=== PATIENT | female | born 1940 | race Two or more races ===

== ENCOUNTER 2021-08-24 09:05 | Emergency (ER) | payer MEDICARE, MEDICAID, OTHER ==
[~2021-08-24] VITALS: Ht 167.6 cm; Wt 65.8 kg
[2021-08-24 09:54] LABS: Basophils # (auto) 0.1 10 ^3/uL (0-0.2); Basophils % (auto) 0.7 % (0.0-2.0); Eosinophils # (auto) 0.2 10 ^3/uL (0-0.8); Eosinophils % (auto) 1.8 % (0.0-7.0); Hemoglobin 9.5 g/dL (12.2-16.2); INR 0.99 (0.9-1.15); Lymphocytes # (auto) 1.1 10 ^3/uL (0.4-5.4); Lymphocytes % (auto) 10.9 % (10.0-50.0); Mean Corpuscular Hemoglobin 31.4 pg (28.0-32.0); Mean Corpuscular Volume 95.2 fL (80.0-100.0); Monocytes # (auto) 0.5 10 ^3/uL (0-1.3); Monocytes % (auto) 4.8 % (0.0-12.0); Neutrophils # (auto) 8.2 10 ^3/uL (1.6-8.6); Neutrophils % (auto) 81.8 % (37.0-80.0); Nucleated Red Blood Cells % 0.1 %; Red Blood Cells 3.04 10^6/uL (4.0-5.20); Red Cell Distribution Width 14.9 % (11.8-14.3)
[2021-08-24 09:58] LABS: Alanine Aminotransferase 11 U/L (13-56); Albumin 3.3 g/dL (3.4-5.0); Anion Gap 8 (5-15); Blood Alcohol < 3.0 mg/dL (0-5); Blood Urea Nitrogen 47 mg/dL (7-18); Calcium 9.1 mg/dL (8.5-10.1); Carbon Dioxide 21 mmol/L (21-32); Chloride 109 mmol/L (98-107); Glucose 132 mg/dL (74-106); Sodium 138 mmol/L (136-145)
[2021-08-24 10:01] LABS: Alkaline Phosphatase 99 U/L (45-117); Aspartate Aminotransferase 18 U/L (15-37); BUN/Creatinine Ratio 13.2; Bilirubin, Total 0.4 mg/dL (0.2-1.0); GFR African American 16 mL/min; GFR Non-African American 13 mL/min; Total Protein 7.6 g/dL (6.4-8.2)
[2021-08-24] MEDS ORDERED: ONDANSETRON HCL 4 MG/2 ML VIAL IV ONE (11:30)
[2021-08-24] MEDS ORDERED: MORPHINE SULFATE 4 MG/ML SYR/VIAL IV ONE (11:30)
[2021-08-24 11:32] LABS: Amphetamine Screen, Urine NEGATIVE (NEGATIVE); Barbiturate Scree,Urine NEGATIVE (NEGATIVE); Benzodiazephine Screen, Urine NEGATIVE (NEGATIVE); Cannabinoid Screen, Urine NEGATIVE (NEGATIVE); Cocaine Screen, Urine NEGATIVE (NEGATIVE); Phencyclidine Screen, Urine NEGATIVE (NEGATIVE)
[2021-08-24 11:34] LABS: Opiate Scree,Urine NEGATIVE (NEGATIVE)
[2021-08-24 11:42] LABS: Urine Bacteria MOD /hpf (None Seen); Urine Blood TRACE /uL (Negative); Urine Mucus FEW (None Seen); Urine Specific Gravity 1.009 (1.001-1.035); Urine WBC 200 /hpf (0 - 5); Urine WBC Clumps PRESENT /hpf (None Seen)
[2021-08-24] MEDS ORDERED: cloNIDine HCL 0.1 MG TAB PO ONE (12:00)
[2021-08-24] MEDS ORDERED: hydrALAZINE HCL 20 MG/ML VL IV ONE (13:15)
[2021-08-24] MEDS ORDERED: cefTRIAXone 1GM/50ML D5W 50 ML IV ONE (15:30)
[2021-08-24 15:42] VITALS: BP 127/45
[2021-08-24] MEDS ORDERED: NITROGLYCERIN 0.4 MG SL TAB SL PRN (16:00)
[2021-08-24] MEDS ORDERED: MORPHINE SULFATE INJECTION 2 MG/ML SYRG IV PRN (16:00)
== END 2021-08-24 16:40 | disposition left against medical advice (07) ==
LOC: ER 09:05 → EDBD 09:05 → ER 16:40
DX: S30.1XXA Contusion of abdominal wall, initial encounter (principal); R41.82 Altered mental status, unspecified; I10 Essential (primary) hypertension; E11.21 Type 2 diabetes mellitus with diabetic nephropathy; N39.0 Urinary tract infection, site not specified; E46 Unspecified protein-calorie malnutrition; I12.9 Hypertensive chronic kidney disease with stage 1 through stage 4 chronic kidney disease, or unspecified chronic kidney disease; E11.22 Type 2 diabetes mellitus with diabetic chronic kidney disease; N18.4 Chronic kidney disease, stage 4 (severe); Z68.23 Body mass index [BMI] 23.0-23.9, adult; Z90.49 Acquired absence of other specified parts of digestive tract; Z90.710 Acquired absence of both cervix and uterus; X58.XXXA Exposure to other specified factors, initial encounter; Y93.89 Activity, other specified; Y92.89 Other specified places as the place of occurrence of the external cause; Y99.8 Other external cause status
CPT/HCPCS: 36415; 70450; 71045; 74176; 80053; 80307; 80320; 81001; 84484; 85025; 85610; 85730; 87086; 87088; 87186; 93005; 96365; 96375; J0696; J2405

== ENCOUNTER 2021-08-26 12:07 | Inpatient (IN) | payer MEDICARE, MEDICAID ==
[~2021-08-26] VITALS: Ht 152.4 cm; Wt 64.0 kg
[2021-08-26] MEDS ORDERED: cefTRIAXone 1GM/50ML D5W 50 ML IV ONE (12:30)
[2021-08-26] MEDS ORDERED: SODIUM CHLORIDE 0.9% 1,000 ML IV ONE ×2 (12:30→15:45)
[2021-08-26 13:16] LABS: Basophils # (auto) 0.1 10 ^3/uL (0-0.2); Basophils % (auto) 0.6 % (0.0-2.0); Eosinophils # (auto) 0.2 10 ^3/uL (0-0.8); Eosinophils % (auto) 2.5 % (0.0-7.0); Hematocrit 26.8 % (36.0-46.0); Lymphocytes # (auto) 1.3 10 ^3/uL (0.4-5.4); Lymphocytes % (auto) 15.5 % (10.0-50.0); Mean Corpuscular Hgb Conc. 33.5 g/dL (32.0-36.0); Mean Corpuscular Volume 95.5 fL (80.0-100.0); Monocytes # (auto) 0.5 10 ^3/uL (0-1.3); Monocytes % (auto) 5.9 % (0.0-12.0); Neutrophils # (auto) 6.5 10 ^3/uL (1.6-8.6); Neutrophils % (auto) 75.5 % (37.0-80.0); Red Blood Cells 2.81 10^6/uL (4.0-5.20); Red Cell Distribution Width 14.7 % (11.8-14.3); White Blood Cell 8.7 10^3/uL (4.4-10.8)
[2021-08-26 13:45] LABS: Albumin 3.4 g/dL (3.4-5.0); BUN/Creatinine Ratio 12.3; Potassium 3.8 mmol/L (3.5-5.1)
[2021-08-26 13:48] LABS: Bilirubin, Total 0.4 mg/dL (0.2-1.0); Total Protein 7.6 g/dL (6.4-8.2)
[2021-08-26] MEDS ORDERED: MORPHINE SULFATE INJECTION 2 MG/ML SYRG IV PRN ×2 (15:30→16:15)
[2021-08-26] MEDS ORDERED: NITROGLYCERIN 0.4 MG SL TAB SL PRN (15:30)
[2021-08-26] MEDS ORDERED: PANTOPRAZOLE 40 MG/10 ML VIAL INJ IV ONE (16:15)
[2021-08-26] MEDS ORDERED: DOCUSATE SOD 100 MG CAP PO PRN (16:15)
[2021-08-26] MEDS ORDERED: IPRATROPIUM BROM 0.5 MG/2.5ML INH SOL NEB ONE (16:15)
[2021-08-26] MEDS ORDERED: HYDROcodone-ACET 5/325MG TAB PO ONE (16:15)
[2021-08-26] MEDS ORDERED: ONDANSETRON HCL 4 MG/2 ML VIAL IV PRN (16:15)
[2021-08-26] MEDS ORDERED: NIFEdipine ER 30 MG TAB PO ONE (16:15)
[2021-08-26] MEDS ORDERED: LORazepam 0.5 MG TAB PO PRN (16:15)
[2021-08-26] MEDS ORDERED: LACTULOSE 20Gm/30ML SOLN PO PRN (16:15)
[2021-08-26] MEDS ORDERED: ISOSORBIDE MONONITRATE ER 60 MG TAB PO ONE (16:15)
[2021-08-26] MEDS ORDERED: MEROPENEM 500MG IVPB 50 ML IV ONE (16:15)
[2021-08-26] MEDS ORDERED: SUCRALFATE 1 GM/10 ML ORAL SUSP PO ONE (16:15)
[2021-08-26 16:38] LABS: Magnesium 2.2 mg/dL (1.6-2.6); Phosphorus 5.5 mg/dL (2.5-4.90)
[2021-08-26] MEDS: SODIUM CHLORIDE 0.9% 1,000 ML IV SCH (16:45)
[2021-08-26] MEDS: SUCRALFATE 1 GM/10 ML ORAL SUSP PO SCH ×2 (17:00→23:36)
[2021-08-26] MEDS ORDERED: IPRATROPIUM BROM 0.5 MG/2.5ML INH SOL NEB SCH (18:00)
[2021-08-26] MEDS ORDERED: IPRATROPIUM BROM 0.5 MG/2.5ML INH SOL NEB PRN (18:15)
[2021-08-26] MEDS: FUROSEMIDE 20 MG/2 ML VIAL IV SCH (18:26)
[2021-08-26 18:28] LABS: INR 1.04 (0.9-1.15); Partial Thromboplastin Time 25.3 sec (23.6-33.0)
[2021-08-26] MEDS: hydrALAZINE HCL 20 MG/ML VL IV PRN (21:24)
[2021-08-26 22:12] VITALS: BP 147/66
[2021-08-26] MEDS ORDERED: SODIUM CHLORIDE 0.9% 250 ML IV ONE ×2 (22:45)
[2021-08-26] MEDS: ATORVASTATIN 20 MG TAB PO SCH (23:37)
[2021-08-26 23:44] LABS: Urine Amorphous Crystal FEW /hpf (None Seen); Urine Bacteria FEW /hpf (None Seen); Urine Blood Negative /uL (Negative); Urine Specific Gravity 1.007 (1.001-1.035); Urine WBC 1 /hpf (0 - 5)
[2021-08-26] MEDS ORDERED: DIGOXIN (250MCG/ML) 2 ML AMPULE IV ONE (23:45)
[2021-08-27] VITALS (9 sets, daily range): BP systolic 116–182; BP diastolic 60–82
[2021-08-27 00:15] LABS: Protein, Urine 74.6 mg/dL (0.0-11.9)
[2021-08-27] MEDS ORDERED: HEPARIN DRIP/D5W 100UNITS/ML 250 ML IV SCH ×3 (02:15→18:45)
[2021-08-27] MEDS ORDERED: HEPARIN SODIUM (PORCINE) 5000 UNITS/ML 1ML VIAL IV ONE (02:15)
[2021-08-27 02:34] LABS: Basophils # (auto) 0 10 ^3/uL (0-0.2); Eosinophils # (auto) 0.1 10 ^3/uL (0-0.8); Eosinophils % (auto) 0.6 % (0.0-7.0); Neutrophils # (auto) 11.3 10 ^3/uL (1.6-8.6); White Blood Cell 12.6 10^3/uL (4.4-10.8)
[2021-08-27 02:36] LABS: Basophils % (auto) 0.4 % (0.0-2.0); Hematocrit 24.2 % (36.0-46.0); Lymphocytes # (auto) 0.8 10 ^3/uL (0.4-5.4); Lymphocytes % (auto) 6.2 % (10.0-50.0); Mean Corpuscular Hemoglobin 31.7 pg (28.0-32.0); Mean Corpuscular Hgb Conc. 33.1 g/dL (32.0-36.0); Mean Corpuscular Volume 95.7 fL (80.0-100.0); Monocytes # (auto) 0.4 10 ^3/uL (0-1.3); Monocytes % (auto) 3.1 % (0.0-12.0); Neutrophils % (auto) 89.7 % (37.0-80.0); Red Blood Cells 2.53 10^6/uL (4.0-5.20)
[2021-08-27 02:49] LABS: INR 1.03 (0.9-1.15); Partial Thromboplastin Time 25.6 sec (23.6-33.0)
[2021-08-27] MEDS: SODIUM CHLORIDE 0.9% 1,000 ML IV SCH (04:10)
[2021-08-27] MEDS ORDERED: MEROPENEM 500MG IVPB 50 ML IV SCH (05:00)
[2021-08-27] MEDS: FUROSEMIDE 20 MG/2 ML VIAL IV SCH (06:24)
[2021-08-27] MEDS: SUCRALFATE 1 GM/10 ML ORAL SUSP PO SCH ×4 (06:24→21:42)
[2021-08-27 06:40] LABS: Eosinophils # (auto) 0.1 10 ^3/uL (0-0.8); Monocytes # (auto) 0.6 10 ^3/uL (0-1.3)
[2021-08-27 06:42] LABS: Basophils # (auto) 0 10 ^3/uL (0-0.2); Basophils % (auto) 0.4 % (0.0-2.0); Eosinophils % (auto) 0.6 % (0.0-7.0); Hematocrit 23.8 % (36.0-46.0); Lymphocytes % (auto) 8.6 % (10.0-50.0); Mean Corpuscular Hemoglobin 32.2 pg (28.0-32.0); Mean Corpuscular Hgb Conc. 33.8 g/dL (32.0-36.0); Mean Corpuscular Volume 95.1 fL (80.0-100.0); Monocytes % (auto) 4.7 % (0.0-12.0); Neutrophils % (auto) 85.7 % (37.0-80.0); Red Cell Distribution Width 14.4 % (11.8-14.3); White Blood Cell 11.7 10^3/uL (4.4-10.8)
[2021-08-27 06:45] LABS: INR 1.02 (0.9-1.15)
[2021-08-27 07:01] LABS: Albumin 2.8 g/dL (3.4-5.0); BUN/Creatinine Ratio 12.3; Bilirubin, Total 0.4 mg/dL (0.2-1.0); CRP High Sensitivity 0.66 mg/dL (< 0.3); Calcium 7.9 mg/dL (8.5-10.1); Magnesium 2.4 mg/dL (1.6-2.6); Phosphorus 4.8 mg/dL (2.5-4.90); Total Protein 6.6 g/dL (6.4-8.2); Uric Acid 6.3 mg/dL (2.6-6.0)
[2021-08-27 08:24] LABS: Alcohol, Urine < 3.0 mg/dL (0-10); Amphetamine Screen, Urine NEGATIVE (NEGATIVE); Barbiturate Scree,Urine NEGATIVE (NEGATIVE); Benzodiazephine Screen, Urine NEGATIVE (NEGATIVE); Cannabinoid Screen, Urine NEGATIVE (NEGATIVE); Cocaine Screen, Urine NEGATIVE (NEGATIVE); Opiate Scree,Urine NEGATIVE (NEGATIVE); Phencyclidine Screen, Urine NEGATIVE (NEGATIVE)
[2021-08-27] MEDS: ISOSORBIDE MONONITRATE 20 MG TAB PO SCH ×2 (10:24→21:58)
[2021-08-27] MEDS: PANTOPRAZOLE 40 MG/10 ML VIAL INJ IV SCH (10:24)
[2021-08-27] MEDS: NIFEdipine ER 30 MG TAB PO SCH (10:25)
[2021-08-27] MEDS: CYANOCOBALAMIN 500 MCG TAB PO SCH (10:25)
[2021-08-27] MEDS: CHOLECALCIFEROL (VITD3) 2,000 UNIT CAP/TAB PO SCH (10:25)
[2021-08-27 10:44] LABS: INR 1.03 (0.9-1.15); Partial Thromboplastin Time 36.4 sec (23.6-33.0)
[2021-08-27] MEDS: LABETALOL HCL 5 MG/ML 4ML SYRINGE IV PRN (14:56)
[2021-08-27] MEDS: HYDROcodone-ACET 5/325MG TAB PO PRN (14:57)
[2021-08-27] MEDS ORDERED: LACTATED RINGER'S 1,000 ML IV SCH (16:15)
[2021-08-27] MEDS: hydrALAZINE HCL 20 MG/ML VL IV PRN (17:50)
[2021-08-27 19:20] LABS: INR 1.01 (0.9-1.15); Partial Thromboplastin Time 37.7 sec (23.6-33.0)
[2021-08-27] MEDS: HEPARIN DRIP/D5W 100UNITS/ML 250 ML IV SCH (19:30)
[2021-08-27] MEDS: ATORVASTATIN 20 MG TAB PO SCH (21:58)
[2021-08-27] MEDS: CARVEDILOL 3.125 MG TAB PO SCH (21:59)
[2021-08-28 01:45] LABS: INR 1.04 (0.9-1.15)
[2021-08-28 01:56] LABS: Partial Thromboplastin Time 85.1 sec (23.6-33.0)
[2021-08-28 05:00] VITALS: BP 135/49
[2021-08-28] MEDS: SUCRALFATE 1 GM/10 ML ORAL SUSP PO SCH ×4 (07:23→21:20)
[2021-08-28 08:54] LABS: Basophils # (auto) 0 10 ^3/uL (0-0.2); Eosinophils # (auto) 0.2 10 ^3/uL (0-0.8); Lymphocytes # (auto) 1.3 10 ^3/uL (0.4-5.4); Lymphocytes % (auto) 9.9 % (10.0-50.0); Mean Corpuscular Hemoglobin 31.4 pg (28.0-32.0); Monocytes # (auto) 0.9 10 ^3/uL (0-1.3)
[2021-08-28 08:55] LABS: Basophils % (auto) 0.2 % (0.0-2.0); Eosinophils % (auto) 1.6 % (0.0-7.0); Hematocrit 23.4 % (36.0-46.0); Hemoglobin 7.7 g/dL (12.2-16.2); Mean Corpuscular Hgb Conc. 33.2 g/dL (32.0-36.0); Mean Corpuscular Volume 94.8 fL (80.0-100.0); Monocytes % (auto) 6.7 % (0.0-12.0); Neutrophils # (auto) 10.6 10 ^3/uL (1.6-8.6); Neutrophils % (auto) 81.6 % (37.0-80.0); Red Blood Cells 2.46 10^6/uL (4.0-5.20); Red Cell Distribution Width 14.8 % (11.8-14.3); White Blood Cell 12.9 10^3/uL (4.4-10.8)
[2021-08-28 09:00] VITALS: BP 159/71
[2021-08-28] MEDS ORDERED: cefTRIAXone 1GM/50ML D5W 50 ML IV SCH (09:00)
[2021-08-28 09:03] LABS: % Iron Saturation 17.7 % (15-50)
[2021-08-28 09:05] LABS: BUN/Creatinine Ratio 10.6; Calcium 8.9 mg/dL (8.5-10.1); Potassium 3.8 mmol/L (3.5-5.1)
[2021-08-28 09:07] LABS: INR 1.01 (0.9-1.15); Partial Thromboplastin Time 65.8 sec (23.6-33.0)
[2021-08-28] MEDS: PANTOPRAZOLE 40 MG/10 ML VIAL INJ IV SCH (09:44)
[2021-08-28] MEDS: CHOLECALCIFEROL (VITD3) 2,000 UNIT CAP/TAB PO SCH (09:47)
[2021-08-28] MEDS: CARVEDILOL 3.125 MG TAB PO SCH ×2 (09:47→21:21)
[2021-08-28] MEDS: HYDROcodone-ACET 5/325MG TAB PO PRN (09:47)
[2021-08-28] MEDS: CYANOCOBALAMIN 500 MCG TAB PO SCH (09:48)
[2021-08-28] MEDS: ISOSORBIDE MONONITRATE 20 MG TAB PO SCH ×2 (09:48→21:22)
[2021-08-28] MEDS: CLOPIDOGREL BISULFATE 75 MG TAB PO SCH (09:49)
[2021-08-28] MEDS: NIFEdipine ER 30 MG TAB PO SCH (09:49)
[2021-08-28] MEDS: ASPirin 81 mg TAB PO SCH (09:49)
[2021-08-28] MEDS ORDERED: CARV6.2551 PO (10:37)
[2021-08-28] MEDS ORDERED: NIFE1TAB30 PO (10:37)
[2021-08-28] MEDS ORDERED: METF-370 PO (10:37)
[2021-08-28] MEDS ORDERED: LOSA-69 PO (10:37)
[2021-08-28] MEDS ORDERED: SIMV5TAB50 PO (10:37)
[2021-08-28] MEDS ORDERED: CLON0.1T PO (10:37)
[2021-08-28 13:00] VITALS: BP 158/82
[2021-08-28] MEDS: hydrALAZINE HCL 20 MG/ML VL IV PRN (14:01)
[2021-08-28] MEDS ORDERED: SODIUM FERR GLUC 62.5MG/5ML 125 MG in SODIUM CHL 0.9% 100 ML IV ONE (15:45)
[2021-08-28 16:10] LABS: INR 0.99 (0.9-1.15); Partial Thromboplastin Time 54.7 sec (23.6-33.0)
[2021-08-28 17:00] VITALS: BP 163/53
[2021-08-28] MEDS: LABETALOL HCL 5 MG/ML 4ML SYRINGE IV PRN (18:19)
[2021-08-28] MEDS: HEPARIN DRIP/D5W 100UNITS/ML 250 ML IV SCH (19:35)
[2021-08-28 20:00] VITALS: BP 116/73
[2021-08-28] MEDS: ATORVASTATIN 20 MG TAB PO SCH (21:22)
[2021-08-28 21:54] LABS: INR 1.02 (0.9-1.15)
[2021-08-28 22:00] VITALS: BP 176/55
[2021-08-28 22:01] LABS: Partial Thromboplastin Time 117.7 sec (23.6-33.0)
[2021-08-29] MEDS: SUCRALFATE 1 GM/10 ML ORAL SUSP PO SCH ×3 (06:13→17:24)
[2021-08-29 07:18] LABS: Basophils # (auto) 0 10 ^3/uL (0-0.2); Eosinophils # (auto) 0.1 10 ^3/uL (0-0.8); Eosinophils % (auto) 1.2 % (0.0-7.0); Hemoglobin 7.8 g/dL (12.2-16.2); Monocytes # (auto) 0.8 10 ^3/uL (0-1.3); Neutrophils # (auto) 8.7 10 ^3/uL (1.6-8.6); White Blood Cell 10.6 10^3/uL (4.4-10.8)
[2021-08-29 07:20] LABS: Basophils % (auto) 0.4 % (0.0-2.0); Lymphocytes # (auto) 0.9 10 ^3/uL (0.4-5.4); Lymphocytes % (auto) 8.6 % (10.0-50.0); Mean Corpuscular Hemoglobin 32.7 pg (28.0-32.0); Mean Corpuscular Hgb Conc. 33.9 g/dL (32.0-36.0); Mean Corpuscular Volume 96.3 fL (80.0-100.0); Monocytes % (auto) 7.7 % (0.0-12.0); Neutrophils % (auto) 82.1 % (37.0-80.0); Red Blood Cells 2.39 10^6/uL (4.0-5.20)
[2021-08-29 07:21] LABS: INR 1.01 (0.9-1.15); Partial Thromboplastin Time 45.6 sec (23.6-33.0)
[2021-08-29 07:26] LABS: Calcium 8.9 mg/dL (8.5-10.1); Potassium 3.7 mmol/L (3.5-5.1)
[2021-08-29 07:28] LABS: BUN/Creatinine Ratio 10.7
[2021-08-29] MEDS ORDERED: FERROUS SULFATE 325mg EC TAB PO SCH (08:00)
[2021-08-29] MEDS: HEPARIN DRIP/D5W 100UNITS/ML 250 ML IV SCH (08:08)
[2021-08-29 09:00] VITALS: BP 155/60
[2021-08-29] MEDS: CLOPIDOGREL BISULFATE 75 MG TAB PO SCH (09:26)
[2021-08-29] MEDS: CHOLECALCIFEROL (VITD3) 2,000 UNIT CAP/TAB PO SCH (09:26)
[2021-08-29] MEDS: CYANOCOBALAMIN 500 MCG TAB PO SCH (09:26)
[2021-08-29] MEDS: PANTOPRAZOLE 40 MG/10 ML VIAL INJ IV SCH (09:29)
[2021-08-29] MEDS: NIFEdipine ER 30 MG TAB PO SCH (09:30)
[2021-08-29] MEDS: ASPirin 81 mg TAB PO SCH (09:30)
[2021-08-29] MEDS: CARVEDILOL 3.125 MG TAB PO SCH (09:31)
[2021-08-29] MEDS: ISOSORBIDE MONONITRATE 20 MG TAB PO SCH (10:28)
[2021-08-29] MEDS ORDERED: HEPARIN DRIP/D5W 100UNITS/ML 250 ML IV SCH (11:15)
[2021-08-29] MEDS ORDERED: SODIUM FERR GLUC 62.5MG/5ML 125 MG in SODIUM CHL 0.9% 100 ML IV SCH (12:00)
[2021-08-29] MEDS: LABETALOL HCL 5 MG/ML 4ML SYRINGE IV PRN (12:45)
[2021-08-29 13:00] VITALS: BP 171/71
[2021-08-29 13:50] VITALS: BP 138/55
[2021-08-29] MEDS ORDERED: ASPI1CHW15 PO (15:50)
[2021-08-29] MEDS ORDERED: FER325T PO (15:50)
[2021-08-29] MEDS ORDERED: CLOP75TA70 PO (15:50)
[2021-08-29] MEDS ORDERED: ISO20T PO (15:50)
[2021-08-29] MEDS ORDERED: ATOR40TA52 PO (15:50)
[2021-08-29 16:15] LABS: INR 1.02 (0.9-1.15)
[2021-08-29 16:21] LABS: Partial Thromboplastin Time 91.5 sec (23.6-33.0)
[2021-08-29 16:55] VITALS: BP 138/55
[2021-08-29 17:00] VITALS: BP 144/52
== END 2021-08-29 19:15 | disposition home or self-care (01) | DRG 280 ==
LOC: ER 12:07 → TELE 15:28 → TELE-WESTW 08-27 00:12
PROVIDERS: ADMIT Hospitalist; ATTEND Hospitalist
DX: I21.4 Non-ST elevation (NSTEMI) myocardial infarction (principal); G93.41 Metabolic encephalopathy; I16.1 Hypertensive emergency; N39.0 Urinary tract infection, site not specified; N18.4 Chronic kidney disease, stage 4 (severe); E44.1 Mild protein-calorie malnutrition; I13.0 Hypertensive heart and chronic kidney disease with heart failure and stage 1 through stage 4 chronic kidney disease, or unspecified chronic kidney disease; N17.9 Acute kidney failure, unspecified; K21.9 Gastro-esophageal reflux disease without esophagitis; I25.10 Atherosclerotic heart disease of native coronary artery without angina pectoris; K29.70 Gastritis, unspecified, without bleeding; Z20.822 Contact with and (suspected) exposure to COVID-19; D50.9 Iron deficiency anemia, unspecified; R42 Dizziness and giddiness; E11.22 Type 2 diabetes mellitus with diabetic chronic kidney disease; E66.01 Morbid (severe) obesity due to excess calories; E78.5 Hyperlipidemia, unspecified; F03.90 Unspecified dementia, unspecified severity, without behavioral disturbance, psychotic disturbance, mood disturbance, and anxiety; R00.1 Bradycardia, unspecified; N20.0 Calculus of kidney; S30.1XXA Contusion of abdominal wall, initial encounter; W19.XXXA Unspecified fall, initial encounter; Z68.27 Body mass index [BMI] 27.0-27.9, adult; Y92.009 Unspecified place in unspecified non-institutional (private) residence as the place of occurrence of the external cause; Z79.4 Long term (current) use of insulin; Z87.442 Personal history of urinary calculi; Z90.49 Acquired absence of other specified parts of digestive tract; Z90.710 Acquired absence of both cervix and uterus
CPT/HCPCS: 36415; 70450; 70551; 71045; 74176; 76775; 80048; 80053; 80061; 80307; 80320; 81001; 82270; 82550; 82570; 82728; 83036; 83540; 83550; 83605; 83690; 83735; 83880; 83970; 84100; 84156; 84300; 84443; 84484; 84550; 85025; 85379; 85610; 85652; 85730; 86141; 87040; 87081; 87086; 87088; 87186; 93005; 93306; 93886; 96361; 96365; 96367; 96375; 97116; 97163; 97530; C9113; G0378; J0696; J2185; J2405; J3490

== ENCOUNTER 2021-12-02 00:45 | Inpatient (IN) | payer MEDICARE, MEDICAID ==
[~2021-12-02] VITALS: Ht 157.5 cm; Wt 58.5 kg
[~2021-12-02 00:45] MED LIST: ASPI1CHW15 PO; ATOR40TA52 PO; CARV6.2551 PO; CLON0.1T PO; CLOP75TA70 PO; FER325T PO; ISO20T PO; METF-370 PO; NIFE1TAB30 PO
[2021-12-02 01:27] LABS: Basophils # (auto) 0.1 10 ^3/uL (0-0.2); Basophils % (auto) 0.8 % (0.0-2.0); Eosinophils # (auto) 0.3 10 ^3/uL (0-0.8); Eosinophils % (auto) 1.6 % (0.0-7.0); Hematocrit 29.2 % (36.0-46.0); Hemoglobin 9.6 g/dL (12.2-16.2); Lymphocytes # (auto) 0.9 10 ^3/uL (0.4-5.4); Lymphocytes % (auto) 5.3 % (10.0-50.0); Mean Corpuscular Hemoglobin 31.1 pg (28.0-32.0); Mean Corpuscular Hgb Conc. 32.8 g/dL (32.0-36.0); Mean Corpuscular Volume 94.9 fL (80.0-100.0); Monocytes # (auto) 1.1 10 ^3/uL (0-1.3); Monocytes % (auto) 6.5 % (0.0-12.0); Neutrophils # (auto) 14.9 10 ^3/uL (1.6-8.6); Neutrophils % (auto) 85.8 % (37.0-80.0); Red Blood Cells 3.07 10^6/uL (4.0-5.20); Red Cell Distribution Width 14.4 % (11.8-14.3); White Blood Cell 17.3 10^3/uL (4.4-10.8)
[2021-12-02 01:45] LABS: INR 1.04 (0.9-1.15); Partial Thromboplastin Time 23.4 sec (23.6-33.0)
[2021-12-02 01:49] LABS: Albumin 3.2 g/dL (3.4-5.0); BUN/Creatinine Ratio 10.6; Calcium 8.5 mg/dL (8.5-10.1); Potassium 4.8 mmol/L (3.5-5.1)
[2021-12-02 01:51] LABS: Bilirubin, Total 0.3 mg/dL (0.2-1.0); Total Protein 7.2 g/dL (6.4-8.2)
[2021-12-02] MEDS ORDERED: MORPHINE SULFATE INJ 2 MG/ml SYRG IV ONE (02:15)
[2021-12-02] MEDS ORDERED: SODIUM CHLORIDE 0.9% 1,000 ML IV ONE (02:15)
[2021-12-02] MEDS ORDERED: ONDANSETRON HCL 4 MG/2 ML VIAL IV ONE (02:15)
[2021-12-02] MEDS ORDERED: ENOXAPARIN SOD 80 MG/0.8ML SYRINGE SC ONE (02:15)
[2021-12-02] MEDS ORDERED: cefTRIAXone 1GM/50ML D5W 50 ML IV ONE (02:15)
[2021-12-02 03:15] LABS: Urine Bacteria FEW /hpf (None Seen); Urine Blood Negative /uL (Negative); Urine Specific Gravity 1.013 (1.001-1.035); Urine WBC 6 /hpf (0 - 5)
[2021-12-02] MEDS ORDERED: PROMETHAZINE HCL 25 MG/ML 1ML IV ONE (03:30)
[2021-12-02 03:56] LABS: Lactic Acid w/Reflex 2.8 mmol/L (0.4-2.0)
[2021-12-02] MEDS ORDERED: NITROGLYCERIN 0.4 MG SL TAB SL PRN (06:30)
[2021-12-02] MEDS ORDERED: DEXTROSE (50%) 50ML SYRG IV PRN (06:30)
[2021-12-02] MEDS ORDERED: MORPHINE SULFATE INJ 2 MG/ml SYRG IV PRN (06:30)
[2021-12-02] MEDS ORDERED: ONDANSETRON HCL 4 MG/2 ML VIAL IV PRN (06:30)
[2021-12-02] MEDS: ACCU-CHEK COMFORT CURVE STRIP VI SCH ×4 (08:30→21:48)
[2021-12-02] MEDS: InsuLIN REG 1unit/0.01ml Soln (100units/ml) SC SCH ×4 (08:30→22:00)
[2021-12-02] MEDS ORDERED: HEPARIN SODIUM (PORCINE) 5000 UNITS/ML 1ML VIAL IV ONE (09:45)
[2021-12-02] MEDS ORDERED: HEPARIN DRIP/D5W 100UNITS/ML 250 ML IV SCH (09:45)
[2021-12-02] MEDS ORDERED: ASPirin 81 mg TAB PO SCH (10:00)
[2021-12-02] MEDS ORDERED: CLOPIDOGREL BISULFATE 75 MG TAB PO SCH (10:00)
[2021-12-02] MEDS: cloNIDine HCL 0.1 MG TAB PO SCH ×2 (10:56→21:59)
[2021-12-02] MEDS: PANTOPRAZOLE 40 MG TAB PO SCH (10:57)
[2021-12-02] MEDS: ISOSORBIDE MONONITRATE 20 MG TAB PO SCH ×2 (10:57→22:00)
[2021-12-02 11:18] LABS: BUN/Creatinine Ratio 12.6; Calcium 8.4 mg/dL (8.5-10.1); Potassium 4.8 mmol/L (3.5-5.1)
[2021-12-02] MEDS: SODIUM CHLORIDE 0.9% 1,000 ML IV SCH ×2 (16:41→23:58)
[2021-12-02 17:48] LABS: INR 1.16 (0.9-1.15); Partial Thromboplastin Time 69.9 sec (23.6-33.0)
[2021-12-02] MEDS: FERROUS SULFATE 325mg EC TAB PO SCH (18:25)
[2021-12-02] MEDS: ATORVASTATIN 20 MG TAB PO SCH (21:48)
[2021-12-02 22:00] VITALS: BP 151/51
[2021-12-02 23:47] LABS: INR 1.12 (0.9-1.15); Partial Thromboplastin Time 61.7 sec (23.6-33.0)
[2021-12-03 05:00] VITALS: BP 143/44
[2021-12-03 06:47] LABS: Basophils # (auto) 0 10 ^3/uL (0-0.2); Basophils % (auto) 0.1 % (0.0-2.0); Eosinophils # (auto) 0.1 10 ^3/uL (0-0.8); Eosinophils % (auto) 0.4 % (0.0-7.0); Hemoglobin 7.5 g/dL (12.2-16.2)
[2021-12-03] MEDS ORDERED: LOSA-69 PO (06:48)
[2021-12-03 06:49] LABS: Hematocrit 22.8 % (36.0-46.0); Lymphocytes % (auto) 4.7 % (10.0-50.0); Mean Corpuscular Hemoglobin 31.1 pg (28.0-32.0); Mean Corpuscular Hgb Conc. 32.8 g/dL (32.0-36.0); Mean Corpuscular Volume 94.7 fL (80.0-100.0); Monocytes # (auto) 1.1 10 ^3/uL (0-1.3); Neutrophils # (auto) 19.2 10 ^3/uL (1.6-8.6); Neutrophils % (auto) 89.8 % (37.0-80.0); Red Blood Cells 2.41 10^6/uL (4.0-5.20); Red Cell Distribution Width 14.3 % (11.8-14.3); White Blood Cell 21.4 10^3/uL (4.4-10.8)
[2021-12-03] MEDS: ACCU-CHEK COMFORT CURVE STRIP VI SCH ×4 (06:57→22:03)
[2021-12-03] MEDS: InsuLIN REG 1unit/0.01ml Soln (100units/ml) SC SCH ×4 (06:58→22:00)
[2021-12-03 07:04] LABS: Potassium 5.2 mmol/L (3.5-5.1)
[2021-12-03 07:10] LABS: Albumin 2.5 g/dL (3.4-5.0); BUN/Creatinine Ratio 13.6; Bilirubin, Total 0.3 mg/dL (0.2-1.0); Calcium 7.4 mg/dL (8.5-10.1); Magnesium 2.9 mg/dL (1.6-2.6); Total Protein 5.8 g/dL (6.4-8.2)
[2021-12-03 07:13] LABS: INR 1.1 (0.9-1.15)
[2021-12-03] MEDS ORDERED: HEPARIN DRIP/D5W 100UNITS/ML 250 ML IV SCH (08:45)
[2021-12-03 09:00] VITALS: BP 168/48
[2021-12-03] MEDS: cefTRIAXone 1GM/50ML D5W 50 ML IV SCH (10:29)
[2021-12-03] MEDS: ISOSORBIDE MONONITRATE 20 MG TAB PO SCH ×2 (10:30→22:02)
[2021-12-03] MEDS: ASPirin 81 mg TAB PO SCH (10:31)
[2021-12-03] MEDS: cloNIDine HCL 0.1 MG TAB PO SCH ×2 (10:31→22:02)
[2021-12-03] MEDS: FERROUS SULFATE 325mg EC TAB PO SCH ×2 (10:32→18:06)
[2021-12-03] MEDS: PANTOPRAZOLE 40 MG TAB PO SCH (10:32)
[2021-12-03 11:22] LABS: Hematocrit 23.3 % (36.0-46.0); Hemoglobin 7.9 g/dL (12.2-16.2)
[2021-12-03 12:57] VITALS: BP 155/48
[2021-12-03 15:55] LABS: % Iron Saturation 16.1 % (15-50)
[2021-12-03 16:30] LABS: INR 1.04 (0.9-1.15); Partial Thromboplastin Time 27.7 sec (23.6-33.0)
[2021-12-03 17:00] VITALS: BP 165/56
[2021-12-03 21:58] VITALS: BP 164/42
[2021-12-03] MEDS: ATORVASTATIN 20 MG TAB PO SCH (22:03)
[2021-12-03] MEDS ORDERED: SIMV5TAB50 PO (23:16)
[2021-12-04] VITALS (9 sets, daily range): BP systolic 102–218; BP diastolic 34–93
[2021-12-04] MEDS: SODIUM CHLORIDE 0.9% 1,000 ML IV SCH (01:01)
[2021-12-04] MEDS: hydrALAZINE HCL 20 MG/ML VL IV PRN ×2 (04:35→12:02)
[2021-12-04 05:39] LABS: Basophils # (auto) 0 10 ^3/uL (0-0.2); Basophils % (auto) 0.2 % (0.0-2.0); Neutrophils % (auto) 85.4 % (37.0-80.0)
[2021-12-04 05:42] LABS: Eosinophils # (auto) 0.2 10 ^3/uL (0-0.8); Eosinophils % (auto) 1.3 % (0.0-7.0); Hematocrit 22.8 % (36.0-46.0); Hemoglobin 7.9 g/dL (12.2-16.2); Lymphocytes # (auto) 1.4 10 ^3/uL (0.4-5.4); Lymphocytes % (auto) 7.8 % (10.0-50.0); Mean Corpuscular Hemoglobin 32.5 pg (28.0-32.0); Mean Corpuscular Hgb Conc. 34.5 g/dL (32.0-36.0); Mean Corpuscular Volume 94.2 fL (80.0-100.0); Monocytes % (auto) 5.3 % (0.0-12.0); Neutrophils # (auto) 15.9 10 ^3/uL (1.6-8.6); Red Blood Cells 2.42 10^6/uL (4.0-5.20); Red Cell Distribution Width 14.2 % (11.8-14.3); White Blood Cell 18.6 10^3/uL (4.4-10.8)
[2021-12-04] MEDS: ACCU-CHEK COMFORT CURVE STRIP VI SCH ×4 (05:50→21:54)
[2021-12-04] MEDS: InsuLIN REG 1unit/0.01ml Soln (100units/ml) SC SCH ×4 (05:50→21:55)
[2021-12-04 06:03] LABS: BUN/Creatinine Ratio 12.5; Calcium 8.1 mg/dL (8.5-10.1); Potassium 4.3 mmol/L (3.5-5.1)
[2021-12-04] MEDS ORDERED: SODIUM CHL 0.9% 1000 ML BAG XX ONE (07:00)
[2021-12-04 07:12] LABS: % Iron Saturation 23.7 % (15-50)
[2021-12-04] MEDS: ASPirin 81 mg TAB PO SCH (08:25)
[2021-12-04] MEDS: PANTOPRAZOLE 40 MG TAB PO SCH (08:25)
[2021-12-04] MEDS: cefTRIAXone 1GM/50ML D5W 50 ML IV SCH (08:25)
[2021-12-04] MEDS: FERROUS SULFATE 325mg EC TAB PO SCH ×2 (08:25→17:38)
[2021-12-04] MEDS: ISOSORBIDE MONONITRATE 20 MG TAB PO SCH (09:24)
[2021-12-04] MEDS: cloNIDine HCL 0.1 MG TAB PO SCH (09:25)
[2021-12-04] MEDS ORDERED: hydrALAZINE HCL 25 MG TAB PO ONE (13:00)
[2021-12-04] MEDS ORDERED: SODIUM CHLORIDE 0.9% 1,000 ML IV SCH (13:00)
[2021-12-04] MEDS ORDERED: NIFEdipine ER 30 MG TAB PO ONE (13:15)
[2021-12-04] MEDS: hydrALAZINE HCL 25 MG TAB PO SCH ×3 (13:41→21:54)
[2021-12-04] MEDS ORDERED: CARVEDILOL 12.5 MG TAB PO ONE (15:15)
[2021-12-04] MEDS ORDERED: hydrALAZINE HCL 20 MG/ML VL IV ONE (15:15)
[2021-12-04] MEDS: cloNIDine HCL 0.1 MG TAB PO PRN ×2 (15:58→16:27)
[2021-12-04] MEDS ORDERED: SODIUM CHLORIDE 0.9% 250 ML IV ONE (17:45)
[2021-12-04] MEDS ORDERED: EPOETIN ALFA-EPBX 10,000 UNIT/1ML VIAL SC ONE (21:00)
[2021-12-04] MEDS: ATORVASTATIN 20 MG TAB PO SCH (21:54)
[2021-12-04] MEDS: CARVEDILOL 3.125 MG TAB PO SCH (21:54)
[2021-12-05] VITALS (16 sets, daily range): BP systolic 102–221; BP diastolic 35–84
[2021-12-05 05:27] LABS: Basophils # (auto) 0 10 ^3/uL (0-0.2); Basophils % (auto) 0.4 % (0.0-2.0); Eosinophils # (auto) 0.3 10 ^3/uL (0-0.8); Eosinophils % (auto) 2.1 % (0.0-7.0); Hematocrit 23.1 % (36.0-46.0); Hemoglobin 7.8 g/dL (12.2-16.2); Lymphocytes # (auto) 1.6 10 ^3/uL (0.4-5.4); Lymphocytes % (auto) 12.5 % (10.0-50.0); Mean Corpuscular Hemoglobin 32.3 pg (28.0-32.0); Mean Corpuscular Hgb Conc. 33.9 g/dL (32.0-36.0); Monocytes # (auto) 0.8 10 ^3/uL (0-1.3); Neutrophils # (auto) 10.1 10 ^3/uL (1.6-8.6); Red Blood Cells 2.43 10^6/uL (4.0-5.20); Red Cell Distribution Width 14.5 % (11.8-14.3); White Blood Cell 12.8 10^3/uL (4.4-10.8)
[2021-12-05] MEDS: hydrALAZINE HCL 25 MG TAB PO SCH ×3 (05:42→22:09)
[2021-12-05 05:45] LABS: INR 1.03 (0.9-1.15); Partial Thromboplastin Time 27.9 sec (23.6-33.0)
[2021-12-05 05:57] LABS: Calcium 8.5 mg/dL (8.5-10.1); Potassium 4.1 mmol/L (3.5-5.1)
[2021-12-05 05:59] LABS: BUN/Creatinine Ratio 10.8
[2021-12-05] MEDS: InsuLIN REG 1unit/0.01ml Soln (100units/ml) SC SCH ×4 (05:59→22:00)
[2021-12-05] MEDS: ACCU-CHEK COMFORT CURVE STRIP VI SCH ×4 (05:59→22:24)
[2021-12-05] MEDS: FERROUS SULFATE 325mg EC TAB PO SCH ×2 (09:55→18:02)
[2021-12-05] MEDS: PANTOPRAZOLE 40 MG TAB PO SCH (09:55)
[2021-12-05] MEDS: cefTRIAXone 1GM/50ML D5W 50 ML IV SCH (09:56)
[2021-12-05] MEDS ORDERED: ISOSORBIDE MONONITRATE ER 60 MG TAB PO SCH (10:00)
[2021-12-05] MEDS ORDERED: NIFEdipine ER 30 MG TAB PO SCH (10:00)
[2021-12-05 11:14] LABS: Albumin 2.6 g/dL (3.4-5.0)
[2021-12-05 11:18] LABS: Alanine Aminotransferase 21 U/L (13-56); Alkaline Phosphatase 105 U/L (45-117); Aspartate Aminotransferase 19 U/L (15-37); Bilirubin, Direct < 0.1 mg/dL (0-0.2); Bilirubin, Total 0.2 mg/dL (0.2-1.0); Total Protein 6.3 g/dL (6.4-8.2)
[2021-12-05] MEDS ORDERED: fentaNYL CITRATE 100 MCG/2 ML VL ONE (13:31)
[2021-12-05] MEDS ORDERED: MIDAZOLAM HCL 2MG/2ML 2ml VIAL (1mg/ml) ONE (13:32)
[2021-12-05] MEDS ORDERED: LIDOCAINE 2%HCL (LOCAL ANESTH.) INJ 10ml MDV ONE (13:33)
[2021-12-05] MEDS ORDERED: HEPARIN SODIUM (PORCINE) 5000 UNITS/ML 1ML VIAL ONE (13:40)
[2021-12-05] MEDS: hydrALAZINE HCL 20 MG/ML VL IV PRN ×2 (14:21→23:37)
[2021-12-05] MEDS: ASPirin 81 mg TAB PO SCH (18:02)
[2021-12-05] MEDS ORDERED: MORPHINE SULFATE 4 MG/ML SYR/VIAL ONE (19:23)
[2021-12-05] MEDS ORDERED: METOPROLOL TARTRATE 1MG/1ML-5ML VIAL IV PRN (19:30)
[2021-12-05] MEDS ORDERED: dilTIAZem 125mg/125ml BAG KIT 125 ML IV SCH (19:30)
[2021-12-05] MEDS ORDERED: dilTIAZem 25 MG/5 ML VIAL IV ONE (19:30)
[2021-12-05 20:57] LABS: BUN/Creatinine Ratio 8.3; Calcium 8.8 mg/dL (8.5-10.1); Potassium 3.3 mmol/L (3.5-5.1)
[2021-12-05 20:59] LABS: Magnesium 1.9 mg/dL (1.6-2.6)
[2021-12-05 21:01] LABS: Phosphorus 2.1 mg/dL (2.5-4.90)
[2021-12-05 21:06] LABS: INR 0.99 (0.9-1.15); Partial Thromboplastin Time 26.4 sec (23.6-33.0)
[2021-12-05] MEDS ORDERED: APIXABAN 5 MG TAB PO SCH (22:00)
[2021-12-05] MEDS ORDERED: CARVEDILOL 3.125 MG TAB PO SCH (22:00)
[2021-12-05] MEDS: ATORVASTATIN 20 MG TAB PO SCH (22:09)
[2021-12-06] VITALS (65 sets, daily range): BP systolic 91–232; BP diastolic 33–71
[2021-12-06] MEDS: hydrALAZINE HCL 20 MG/ML VL IV PRN (03:09)
[2021-12-06] MEDS ORDERED: amLODIPine BESYLATE 5 MG TAB PO SCH ×2 (03:30→10:00)
[2021-12-06 04:31] LABS: Basophils # (auto) 0 10 ^3/uL (0-0.2); Basophils % (auto) 0.3 % (0.0-2.0); Eosinophils # (auto) 0.2 10 ^3/uL (0-0.8); Eosinophils % (auto) 1.3 % (0.0-7.0); Hematocrit 28.6 % (36.0-46.0); Hemoglobin 9.6 g/dL (12.2-16.2); Lymphocytes # (auto) 1.1 10 ^3/uL (0.4-5.4); Lymphocytes % (auto) 8.8 % (10.0-50.0); Mean Corpuscular Hemoglobin 31.8 pg (28.0-32.0); Mean Corpuscular Hgb Conc. 33.7 g/dL (32.0-36.0); Mean Corpuscular Volume 94.4 fL (80.0-100.0); Monocytes # (auto) 0.9 10 ^3/uL (0-1.3); Monocytes % (auto) 6.8 % (0.0-12.0); Neutrophils # (auto) 10.7 10 ^3/uL (1.6-8.6); Neutrophils % (auto) 82.8 % (37.0-80.0); Red Blood Cells 3.03 10^6/uL (4.0-5.20); Red Cell Distribution Width 14.3 % (11.8-14.3); White Blood Cell 12.9 10^3/uL (4.4-10.8)
[2021-12-06 05:02] LABS: BUN/Creatinine Ratio 7.9; Calcium 8.3 mg/dL (8.5-10.1); Potassium 3.8 mmol/L (3.5-5.1)
[2021-12-06] MEDS: cloNIDine HCL 0.1 MG TAB PO PRN ×3 (05:25→06:28)
[2021-12-06] MEDS: InsuLIN REG 1unit/0.01ml Soln (100units/ml) SC SCH ×4 (06:31→22:35)
[2021-12-06] MEDS: ACCU-CHEK COMFORT CURVE STRIP VI SCH ×4 (06:32→22:36)
[2021-12-06] MEDS: hydrALAZINE HCL 25 MG TAB PO SCH ×2 (06:57→16:30)
[2021-12-06] MEDS ORDERED: AMIODARONE HCL 200 MG TAB PO ONE (08:30)
[2021-12-06] MEDS ORDERED: hydrALAZINE HCL 25 MG TAB PO SCH (08:55)
[2021-12-06] MEDS: cefTRIAXone 1GM/50ML D5W 50 ML IV SCH (09:28)
[2021-12-06] MEDS: ASPirin 81 mg TAB PO SCH (09:29)
[2021-12-06] MEDS: FERROUS SULFATE 325mg EC TAB PO SCH ×2 (09:29→18:40)
[2021-12-06] MEDS: NIFEdipine ER 30 MG TAB PO SCH ×2 (09:31→10:00)
[2021-12-06] MEDS: METOPROLOL TARTRATE 25 MG TAB PO SCH ×2 (09:31→22:30)
[2021-12-06] MEDS: PANTOPRAZOLE 40 MG TAB PO SCH (09:33)
[2021-12-06] MEDS: ISOSORBIDE MONONITRATE ER 60 MG TAB PO SCH (09:33)
[2021-12-06] MEDS ORDERED: ANGIOMAX 250 MG VIAL IV ONE (10:14)
[2021-12-06] MEDS ORDERED: VERAPAMIL 2.5MG/ML INJ 2ML VIAL IV ONE (10:14)
[2021-12-06] MEDS ORDERED: HEPARIN SODIUM (PORCINE) 5000 UNITS/ML 1ML VIAL ONE (10:14)
[2021-12-06] MEDS ORDERED: fentaNYL CITRATE 100 MCG/2 ML VL ONE (10:15)
[2021-12-06] MEDS ORDERED: MIDAZOLAM HCL 2MG/2ML 2ml VIAL (1mg/ml) ONE (10:15)
[2021-12-06] MEDS ORDERED: SODIUM CHL 0.9% 0 ML ONE (10:15)
[2021-12-06] MEDS ORDERED: LIDOCAINE 2%HCL (LOCAL ANESTH.) INJ 10ml MDV ONE (10:16)
[2021-12-06] MEDS ORDERED: hydrALAZINE HCL 20 MG/ML VL ONE (10:44)
[2021-12-06] MEDS ORDERED: ONDANSETRON HCL 4 MG/2 ML VIAL ONE (10:49)
[2021-12-06 14:13] LABS: Hepatitis A Total Antibody Positive (Negative)
[2021-12-06 14:31] LABS: Hepatitis C Antibody Negative (Negative)
[2021-12-06 14:55] LABS: Hepatitis B Surface Antibody Negative (Negative)
[2021-12-06] MEDS: APIXABAN 2.5 MG TAB PO SCH ×2 (15:12→22:29)
[2021-12-06] MEDS: TEMAZEPAM 15 MG CAP PO PRN (21:11)
[2021-12-06] MEDS: ACETAMINOPHEN 325 MG TAB PO PRN (21:11)
[2021-12-06] MEDS: ATORVASTATIN 20 MG TAB PO SCH (22:29)
[2021-12-06] MEDS: AMIODARONE HCL 200 MG TAB PO SCH (22:29)
[2021-12-07] VITALS (32 sets, daily range): BP systolic 102–158; BP diastolic 43–102
[2021-12-07 04:03] LABS: Basophils # (auto) 0 10 ^3/uL (0-0.2); Basophils % (auto) 0.2 % (0.0-2.0); Eosinophils # (auto) 0.2 10 ^3/uL (0-0.8); Eosinophils % (auto) 1.5 % (0.0-7.0); Hematocrit 23.5 % (36.0-46.0); Hemoglobin 7.9 g/dL (12.2-16.2); Lymphocytes # (auto) 1.2 10 ^3/uL (0.4-5.4); Lymphocytes % (auto) 9.9 % (10.0-50.0); Mean Corpuscular Hemoglobin 31.7 pg (28.0-32.0); Mean Corpuscular Hgb Conc. 33.4 g/dL (32.0-36.0); Mean Corpuscular Volume 94.8 fL (80.0-100.0); Monocytes # (auto) 0.9 10 ^3/uL (0-1.3); Monocytes % (auto) 7.2 % (0.0-12.0); Neutrophils # (auto) 9.6 10 ^3/uL (1.6-8.6); Neutrophils % (auto) 81.2 % (37.0-80.0); Red Blood Cells 2.48 10^6/uL (4.0-5.20); Red Cell Distribution Width 14.3 % (11.8-14.3); White Blood Cell 11.8 10^3/uL (4.4-10.8)
[2021-12-07] MEDS: hydrALAZINE HCL 25 MG TAB PO SCH ×2 (04:30→16:59)
[2021-12-07 04:48] LABS: Albumin 2.6 g/dL (3.4-5.0); Calcium 8.1 mg/dL (8.5-10.1); Potassium 4.1 mmol/L (3.5-5.1)
[2021-12-07 04:52] LABS: Bilirubin, Total 0.4 mg/dL (0.2-1.0); Total Protein 6.5 g/dL (6.4-8.2)
[2021-12-07 04:53] LABS: BUN/Creatinine Ratio 8.8
[2021-12-07 04:54] LABS: % Iron Saturation 18.5 % (15-50)
[2021-12-07] MEDS: InsuLIN REG 1unit/0.01ml Soln (100units/ml) SC SCH ×4 (07:00→22:37)
[2021-12-07] MEDS ORDERED: SODIUM CHL 0.9% 1000 ML BAG XX ONE (07:00)
[2021-12-07] MEDS: ACCU-CHEK COMFORT CURVE STRIP VI SCH ×4 (07:24→22:00)
[2021-12-07] MEDS: HYDROcodone-ACET 5/325MG TAB PO PRN ×2 (07:36→16:59)
[2021-12-07] MEDS: cefTRIAXone 1GM/50ML D5W 50 ML IV SCH (09:04)
[2021-12-07] MEDS: FERROUS SULFATE 325mg EC TAB PO SCH ×2 (09:04→17:28)
[2021-12-07] MEDS: METOPROLOL TARTRATE 25 MG TAB PO SCH ×2 (09:23→22:29)
[2021-12-07] MEDS: ISOSORBIDE MONONITRATE ER 60 MG TAB PO SCH (09:24)
[2021-12-07] MEDS: APIXABAN 2.5 MG TAB PO SCH ×2 (09:25→22:00)
[2021-12-07] MEDS: PANTOPRAZOLE 40 MG TAB PO SCH (09:26)
[2021-12-07] MEDS: AMIODARONE HCL 200 MG TAB PO SCH ×2 (09:26→22:30)
[2021-12-07 11:22] LABS: Hematocrit 25.4 % (36.0-46.0); Hemoglobin 8.3 g/dL (12.2-16.2)
[2021-12-07] MEDS: NIFEdipine ER 30 MG TAB PO SCH (12:05)
[2021-12-07] MEDS: ACETAMINOPHEN 325 MG TAB PO PRN (12:13)
[2021-12-07 16:44] LABS: Basophils # (auto) 0.1 10 ^3/uL (0-0.2); Basophils % (auto) 0.6 % (0.0-2.0); Eosinophils # (auto) 0.3 10 ^3/uL (0-0.8); Eosinophils % (auto) 2.1 % (0.0-7.0); Hematocrit 24.4 % (36.0-46.0); Hemoglobin 8.1 g/dL (12.2-16.2); Lymphocytes # (auto) 1.4 10 ^3/uL (0.4-5.4); Lymphocytes % (auto) 10.7 % (10.0-50.0); Mean Corpuscular Hemoglobin 31.5 pg (28.0-32.0); Mean Corpuscular Hgb Conc. 33.1 g/dL (32.0-36.0); Mean Corpuscular Volume 95.3 fL (80.0-100.0); Monocytes # (auto) 0.8 10 ^3/uL (0-1.3); Monocytes % (auto) 6.7 % (0.0-12.0); Neutrophils # (auto) 10.1 10 ^3/uL (1.6-8.6); Neutrophils % (auto) 79.9 % (37.0-80.0); Red Blood Cells 2.56 10^6/uL (4.0-5.20); Red Cell Distribution Width 14.7 % (11.8-14.3); White Blood Cell 12.6 10^3/uL (4.4-10.8)
[2021-12-07 17:05] LABS: INR 1.01 (0.9-1.15)
[2021-12-07] MEDS ORDERED: EPOETIN ALFA-EPBX 4,000 UNIT/ML VIAL SC ONE (21:00)
[2021-12-07] MEDS: ATORVASTATIN 20 MG TAB PO SCH (22:29)
[2021-12-08] VITALS (10 sets, daily range): BP systolic 133–163; BP diastolic 56–90
[2021-12-08] MEDS: ACETAMINOPHEN 325 MG TAB PO PRN (02:58)
[2021-12-08 04:14] LABS: Basophils # (auto) 0.1 10 ^3/uL (0-0.2); Basophils % (auto) 0.7 % (0.0-2.0); Eosinophils # (auto) 0.3 10 ^3/uL (0-0.8); Eosinophils % (auto) 1.9 % (0.0-7.0); Hematocrit 24.7 % (36.0-46.0); Hemoglobin 8.4 g/dL (12.2-16.2); Lymphocytes # (auto) 1.3 10 ^3/uL (0.4-5.4); Lymphocytes % (auto) 9.4 % (10.0-50.0); Mean Corpuscular Hemoglobin 31.9 pg (28.0-32.0); Mean Corpuscular Hgb Conc. 33.9 g/dL (32.0-36.0); Mean Corpuscular Volume 94.1 fL (80.0-100.0); Monocytes # (auto) 0.9 10 ^3/uL (0-1.3); Monocytes % (auto) 6.1 % (0.0-12.0); Neutrophils # (auto) 11.6 10 ^3/uL (1.6-8.6); Neutrophils % (auto) 81.9 % (37.0-80.0); Red Blood Cells 2.62 10^6/uL (4.0-5.20); Red Cell Distribution Width 14.4 % (11.8-14.3); White Blood Cell 14.1 10^3/uL (4.4-10.8)
[2021-12-08] MEDS: hydrALAZINE HCL 25 MG TAB PO SCH ×2 (05:17→16:52)
[2021-12-08] MEDS: ACCU-CHEK COMFORT CURVE STRIP VI SCH ×4 (06:49→22:14)
[2021-12-08] MEDS: InsuLIN REG 1unit/0.01ml Soln (100units/ml) SC SCH ×4 (06:50→22:19)
[2021-12-08] MEDS: PANTOPRAZOLE 40 MG TAB PO SCH (08:59)
[2021-12-08] MEDS: cefTRIAXone 1GM/50ML D5W 50 ML IV SCH (08:59)
[2021-12-08] MEDS: FERROUS SULFATE 325mg EC TAB PO SCH ×2 (09:00→17:41)
[2021-12-08] MEDS: NIFEdipine ER 30 MG TAB PO SCH (09:00)
[2021-12-08] MEDS: METOPROLOL TARTRATE 25 MG TAB PO SCH ×2 (09:01→22:13)
[2021-12-08] MEDS: APIXABAN 2.5 MG TAB PO SCH (09:01)
[2021-12-08] MEDS: ISOSORBIDE MONONITRATE ER 60 MG TAB PO SCH (09:01)
[2021-12-08] MEDS: AMIODARONE HCL 200 MG TAB PO SCH ×2 (09:02→22:12)
[2021-12-08] MEDS ORDERED: LACTULOSE 20Gm/30ML SOLN PO PRN (16:15)
[2021-12-08] MEDS: ATORVASTATIN 20 MG TAB PO SCH (22:11)
[2021-12-08] MEDS: DOCUSATE SOD 100 MG CAP PO SCH (22:11)
[2021-12-09 05:00] VITALS: BP 154/70
[2021-12-09] MEDS: hydrALAZINE HCL 25 MG TAB PO SCH ×3 (05:22→21:42)
[2021-12-09 05:47] LABS: Eosinophils # (auto) 0.2 10 ^3/uL (0-0.8); Mean Corpuscular Volume 94.8 fL (80.0-100.0); Monocytes # (auto) 1.1 10 ^3/uL (0-1.3); White Blood Cell 15.2 10^3/uL (4.4-10.8)
[2021-12-09 05:51] LABS: Basophils # (auto) 0.1 10 ^3/uL (0-0.2); Basophils % (auto) 0.4 % (0.0-2.0); Eosinophils % (auto) 1.4 % (0.0-7.0); Hematocrit 23.7 % (36.0-46.0); Mean Corpuscular Hemoglobin 31.8 pg (28.0-32.0); Mean Corpuscular Hgb Conc. 33.6 g/dL (32.0-36.0); Neutrophils # (auto) 11.9 10 ^3/uL (1.6-8.6); Neutrophils % (auto) 78.2 % (37.0-80.0); Red Cell Distribution Width 14.2 % (11.8-14.3)
[2021-12-09 06:03] LABS: BUN/Creatinine Ratio 5.9; Calcium 8.6 mg/dL (8.5-10.1); Potassium 3.3 mmol/L (3.5-5.1)
[2021-12-09] MEDS: ACCU-CHEK COMFORT CURVE STRIP VI SCH ×4 (06:48→21:44)
[2021-12-09] MEDS: InsuLIN REG 1unit/0.01ml Soln (100units/ml) SC SCH ×4 (06:49→21:44)
[2021-12-09 08:00] VITALS: BP 157/57
[2021-12-09] MEDS: cefTRIAXone 1GM/50ML D5W 50 ML IV SCH (09:00)
[2021-12-09] MEDS: FERROUS SULFATE 325mg EC TAB PO SCH ×2 (10:54→21:45)
[2021-12-09] MEDS: DOCUSATE SOD 100 MG CAP PO SCH ×2 (10:55→21:42)
[2021-12-09] MEDS: AMIODARONE HCL 200 MG TAB PO SCH ×2 (10:55→21:45)
[2021-12-09] MEDS: ISOSORBIDE MONONITRATE ER 60 MG TAB PO SCH (10:57)
[2021-12-09] MEDS: NIFEdipine ER 30 MG TAB PO SCH (10:58)
[2021-12-09] MEDS: PANTOPRAZOLE 40 MG TAB PO SCH (10:58)
[2021-12-09] MEDS: METOPROLOL TARTRATE 25 MG TAB PO SCH ×2 (10:58→21:44)
[2021-12-09 12:00] VITALS: BP 158/59
[2021-12-09] MEDS ORDERED: POTASSIUM CHL 20 Meq TABLET PO ONE (12:00)
[2021-12-09] MEDS ORDERED: LORazepam 0.5 MG TAB PO PRN (13:00)
[2021-12-09] MEDS ORDERED: SODIUM CHL 0.9% 1000 ML BAG XX ONE (14:00)
[2021-12-09] MEDS ORDERED: EPOETIN ALFA-EPBX 10,000 UNIT/1ML VIAL SC ONE (21:00)
[2021-12-09] MEDS: ATORVASTATIN 20 MG TAB PO SCH (21:43)
[2021-12-09] MEDS: APIXABAN 2.5 MG TAB PO SCH (21:44)
[2021-12-09 23:58] VITALS: BP 162/57
[2021-12-10] MEDS: hydrALAZINE HCL 20 MG/ML VL IV PRN (00:34)
[2021-12-10] MEDS: METOPROLOL TARTRATE 25 MG TAB PO SCH ×3 (02:18→21:39)
[2021-12-10 04:41] VITALS: BP 146/57
[2021-12-10 05:44] LABS: Basophils # (auto) 0.1 10 ^3/uL (0-0.2); Basophils % (auto) 0.6 % (0.0-2.0); Eosinophils # (auto) 0.3 10 ^3/uL (0-0.8); Eosinophils % (auto) 2.2 % (0.0-7.0); Hemoglobin 7.7 g/dL (12.2-16.2); Lymphocytes % (auto) 14.3 % (10.0-50.0); Mean Corpuscular Hemoglobin 31.6 pg (28.0-32.0); Mean Corpuscular Hgb Conc. 33.3 g/dL (32.0-36.0); Mean Corpuscular Volume 94.9 fL (80.0-100.0); Monocytes # (auto) 1.1 10 ^3/uL (0-1.3); Monocytes % (auto) 7.9 % (0.0-12.0); Neutrophils # (auto) 10.3 10 ^3/uL (1.6-8.6); Red Blood Cells 2.42 10^6/uL (4.0-5.20); Red Cell Distribution Width 14.3 % (11.8-14.3); White Blood Cell 13.8 10^3/uL (4.4-10.8)
[2021-12-10] MEDS: hydrALAZINE HCL 25 MG TAB PO SCH ×5 (05:45→23:43)
[2021-12-10 05:58] LABS: BUN/Creatinine Ratio 5.7; Calcium 8.7 mg/dL (8.5-10.1); Potassium 3.8 mmol/L (3.5-5.1)
[2021-12-10] MEDS: InsuLIN REG 1unit/0.01ml Soln (100units/ml) SC SCH ×4 (06:27→21:32)
[2021-12-10] MEDS: ACCU-CHEK COMFORT CURVE STRIP VI SCH ×4 (06:27→21:41)
[2021-12-10 09:00] VITALS: BP 142/65
[2021-12-10] MEDS: APIXABAN 2.5 MG TAB PO SCH ×2 (10:00→21:41)
[2021-12-10] MEDS: cefTRIAXone 1GM/50ML D5W 50 ML IV SCH (10:28)
[2021-12-10] MEDS: NIFEdipine ER 30 MG TAB PO SCH (10:29)
[2021-12-10] MEDS: PANTOPRAZOLE 40 MG TAB PO SCH (10:30)
[2021-12-10] MEDS: AMIODARONE HCL 200 MG TAB PO SCH ×2 (10:30→21:39)
[2021-12-10] MEDS: FERROUS SULFATE 325mg EC TAB PO SCH ×2 (10:31→18:00)
[2021-12-10] MEDS: DOCUSATE SOD 100 MG CAP PO SCH ×2 (10:32→21:38)
[2021-12-10] MEDS: ISOSORBIDE MONONITRATE ER 60 MG TAB PO SCH (10:44)
[2021-12-10 13:00] VITALS: BP 130/57
[2021-12-10 17:00] VITALS: BP 132/53
[2021-12-10] MEDS: ATORVASTATIN 20 MG TAB PO SCH (21:38)
[2021-12-10 23:28] VITALS: BP 137/51
[2021-12-11 04:53] VITALS: BP 156/59
[2021-12-11 05:35] LABS: Basophils # (auto) 0.1 10 ^3/uL (0-0.2); Basophils % (auto) 0.5 % (0.0-2.0); Eosinophils # (auto) 0.4 10 ^3/uL (0-0.8); Eosinophils % (auto) 2.7 % (0.0-7.0); Hematocrit 24.2 % (36.0-46.0); Hemoglobin 7.9 g/dL (12.2-16.2); Lymphocytes # (auto) 1.8 10 ^3/uL (0.4-5.4); Lymphocytes % (auto) 13.6 % (10.0-50.0); Mean Corpuscular Hgb Conc. 32.6 g/dL (32.0-36.0); Mean Corpuscular Volume 95.2 fL (80.0-100.0); Monocytes # (auto) 1.1 10 ^3/uL (0-1.3); Monocytes % (auto) 8.2 % (0.0-12.0); Nucleated Red Blood Cells % 0.1 %; Red Blood Cells 2.54 10^6/uL (4.0-5.20); Red Cell Distribution Width 14.6 % (11.8-14.3); White Blood Cell 13.3 10^3/uL (4.4-10.8)
[2021-12-11] MEDS: hydrALAZINE HCL 20 MG/ML VL IV PRN (05:43)
[2021-12-11] MEDS: hydrALAZINE HCL 25 MG TAB PO SCH ×3 (05:43→18:15)
[2021-12-11] MEDS: ACCU-CHEK COMFORT CURVE STRIP VI SCH ×4 (06:19→21:34)
[2021-12-11] MEDS: InsuLIN REG 1unit/0.01ml Soln (100units/ml) SC SCH ×4 (06:19→21:34)
[2021-12-11 09:00] VITALS: BP 136/50
[2021-12-11] MEDS: AMIODARONE HCL 200 MG TAB PO SCH ×2 (10:22→21:34)
[2021-12-11] MEDS: PANTOPRAZOLE 40 MG TAB PO SCH (10:22)
[2021-12-11] MEDS: DOCUSATE SOD 100 MG CAP PO SCH ×2 (10:22→21:34)
[2021-12-11] MEDS: ISOSORBIDE MONONITRATE ER 60 MG TAB PO SCH (10:23)
[2021-12-11] MEDS: FERROUS SULFATE 325mg EC TAB PO SCH ×2 (10:24→18:14)
[2021-12-11] MEDS: METOPROLOL TARTRATE 25 MG TAB PO SCH (10:24)
[2021-12-11] MEDS: NIFEdipine ER 30 MG TAB PO SCH (10:24)
[2021-12-11] MEDS: cefTRIAXone 1GM/50ML D5W 50 ML IV SCH (10:25)
[2021-12-11] MEDS: APIXABAN 2.5 MG TAB PO SCH ×2 (10:35→21:34)
[2021-12-11 13:00] VITALS: BP 48/62
[2021-12-11 17:00] VITALS: BP 135/44
[2021-12-11] MEDS: ACETAMINOPHEN 325 MG TAB PO PRN (19:55)
[2021-12-11] MEDS: ATORVASTATIN 20 MG TAB PO SCH (21:33)
[2021-12-11] MEDS: TEMAZEPAM 15 MG CAP PO PRN (21:34)
[2021-12-11 22:00] VITALS: BP 146/50
[2021-12-12 05:00] VITALS: BP 146/59
[2021-12-12 05:32] LABS: Basophils # (auto) 0.1 10 ^3/uL (0-0.2); Nucleated Red Blood Cells % 0.1 %
[2021-12-12 05:36] LABS: Basophils % (auto) 0.7 % (0.0-2.0); Eosinophils # (auto) 0.3 10 ^3/uL (0-0.8); Eosinophils % (auto) 2.9 % (0.0-7.0); Hematocrit 22.9 % (36.0-46.0); Hemoglobin 7.5 g/dL (12.2-16.2); Lymphocytes % (auto) 18.5 % (10.0-50.0); Mean Corpuscular Hemoglobin 31.4 pg (28.0-32.0); Mean Corpuscular Hgb Conc. 32.9 g/dL (32.0-36.0); Mean Corpuscular Volume 95.4 fL (80.0-100.0); Monocytes % (auto) 8.7 % (0.0-12.0); Neutrophils # (auto) 7.6 10 ^3/uL (1.6-8.6); Neutrophils % (auto) 69.2 % (37.0-80.0); Red Cell Distribution Width 14.3 % (11.8-14.3)
[2021-12-12 05:49] LABS: BUN/Creatinine Ratio 5.4; Calcium 8.5 mg/dL (8.5-10.1); Potassium 3.8 mmol/L (3.5-5.1)
[2021-12-12] MEDS: ACCU-CHEK COMFORT CURVE STRIP VI SCH ×2 (06:06→11:58)
[2021-12-12] MEDS: InsuLIN REG 1unit/0.01ml Soln (100units/ml) SC SCH ×2 (06:06→12:00)
[2021-12-12] MEDS: hydrALAZINE HCL 25 MG TAB PO SCH ×2 (06:21)
[2021-12-12 09:00] VITALS: BP 138/49
[2021-12-12] MEDS: cefTRIAXone 1GM/50ML D5W 50 ML IV SCH (09:00)
[2021-12-12] MEDS: NIFEdipine ER 30 MG TAB PO SCH (09:36)
[2021-12-12] MEDS: ISOSORBIDE MONONITRATE ER 60 MG TAB PO SCH (09:37)
[2021-12-12] MEDS: PANTOPRAZOLE 40 MG TAB PO SCH (09:38)
[2021-12-12] MEDS: METOPROLOL TARTRATE 25 MG TAB PO SCH (09:38)
[2021-12-12] MEDS: AMIODARONE HCL 200 MG TAB PO SCH (09:38)
[2021-12-12] MEDS: FERROUS SULFATE 325mg EC TAB PO SCH (09:39)
[2021-12-12] MEDS: DOCUSATE SOD 100 MG CAP PO SCH (10:00)
[2021-12-12] MEDS ORDERED: APIXABAN 2.5 MG TAB PO SCH (10:00)
[2021-12-12] MEDS ORDERED: PANT40T PO (11:45)
[2021-12-12] MEDS ORDERED: DOCU-94 PO (11:45)
[2021-12-12] MEDS ORDERED: AMIO200T33 PO (11:45)
[2021-12-12] MEDS ORDERED: ISOS60TA24 PO (11:45)
[2021-12-12] MEDS ORDERED: APIX2.5T PO (11:45)
[2021-12-12] MEDS ORDERED: HYDR50TA15 PO (11:45)
[2021-12-12] MEDS ORDERED: FER325T PO (11:45)
[2021-12-12] MEDS ORDERED: MORPHINE SULFATE 4 MG/ML SYR/VIAL IV ONE (15:30)
== END 2021-12-12 12:31 | disposition home health service (06) | DRG 871 ==
LOC: ER 00:45 → EDBD 00:45 → TELE 06:24 → TELE-CENTR 21:40 → ICU WEST 12-05 19:45 → TELE-EAST 12-08 06:15
PROVIDERS: ADMIT Nurse Practitioner; ATTEND Internal Medicine
PROC: 5A1D70Z Performance of Urinary Filtration, Intermittent, Less than 6 Hours Per Day (ICD-10-PCS; 2021-12-05)
PROC: 0JH63XZ Insertion of Tunneled Vascular Access Device into Chest Subcutaneous Tissue and Fascia, Percutaneous Approach (ICD-10-PCS; 2021-12-05)
PROC: 02H633Z Insertion of Infusion Device into Right Atrium, Percutaneous Approach (ICD-10-PCS; 2021-12-05)
PROC: B5181ZA Fluoroscopy of Superior Vena Cava using Low Osmolar Contrast, Guidance (ICD-10-PCS; 2021-12-05)
PROC: B548ZZA Ultrasonography of Superior Vena Cava, Guidance (ICD-10-PCS; 2021-12-05)
PROC: B2111ZZ Fluoroscopy of Multiple Coronary Arteries using Low Osmolar Contrast (ICD-10-PCS; principal; 2021-12-06)
PROC: 4A023N7 Measurement of Cardiac Sampling and Pressure, Left Heart, Percutaneous Approach (ICD-10-PCS; 2021-12-06)
PROC: B2151ZZ Fluoroscopy of Left Heart using Low Osmolar Contrast (ICD-10-PCS; 2021-12-06)
PROC: 5A1D70Z Performance of Urinary Filtration, Intermittent, Less than 6 Hours Per Day (ICD-10-PCS; 2021-12-07)
PROC: 5A1D70Z Performance of Urinary Filtration, Intermittent, Less than 6 Hours Per Day (ICD-10-PCS; 2021-12-10)
DX: A41.9 Sepsis, unspecified organism (principal); N18.6 End stage renal disease; I21.A1 Myocardial infarction type 2; I50.33 Acute on chronic diastolic (congestive) heart failure; N39.0 Urinary tract infection, site not specified; N17.9 Acute kidney failure, unspecified; E44.1 Mild protein-calorie malnutrition; I13.2 Hypertensive heart and chronic kidney disease with heart failure and with stage 5 chronic kidney disease, or end stage renal disease; D63.8 Anemia in other chronic diseases classified elsewhere; I25.10 Atherosclerotic heart disease of native coronary artery without angina pectoris; I44.0 Atrioventricular block, first degree; E11.22 Type 2 diabetes mellitus with diabetic chronic kidney disease; E11.40 Type 2 diabetes mellitus with diabetic neuropathy, unspecified; E66.9 Obesity, unspecified; E78.5 Hyperlipidemia, unspecified; I08.0 Rheumatic disorders of both mitral and aortic valves; F03.90 Unspecified dementia, unspecified severity, without behavioral disturbance, psychotic disturbance, mood disturbance, and anxiety; D63.1 Anemia in chronic kidney disease; I48.0 Paroxysmal atrial fibrillation; Z20.822 Contact with and (suspected) exposure to COVID-19; Z90.49 Acquired absence of other specified parts of digestive tract; Z90.710 Acquired absence of both cervix and uterus; Z68.24 Body mass index [BMI] 24.0-24.9, adult; Z91.14 Patient's other noncompliance with medication regimen; Z79.84 Long term (current) use of oral hypoglycemic drugs
CPT/HCPCS: 36415; 36558; 70450; 71045; 74176; 76775; 76942; 77001; 80048; 80053; 80076; 81001; 82728; 82962; 83540; 83550; 83605; 83735; 83880; 84100; 84439; 84443; 84484; 85014; 85018; 85025; 85379; 85610; 85730; 86704; 86706; 86708; 86803; 86850; 86900; 86901; 87040; 87081; 87086; 87340; 90935; 93005; 93458; 96365; 96372; 96375; 97116; 97163; 97530; 99152; 99291; G0378; J0696; J1642; J1815; J2001; J2250; J2405

== ENCOUNTER → 2021-12-26 | Outpatient (CLI) | payer MEDICARE, MEDICAID ==
[~2021-12-26] MED LIST changes: +AMIO200T33 PO; +APIX2.5T PO; -ASPI1CHW15 PO; -ATOR40TA52 PO; -CLON0.1T PO; -CLOP75TA70 PO; +DOCU-94 PO; +HYDR50TA15 PO; -ISO20T PO; +ISOS60TA24 PO; +LOSA-69 PO; +PANT40T PO; +SIMV5TAB50 PO
[2021-12-26 10:35] LABS: Basophils # (auto) 0.1 10 ^3/uL (0-0.2); Eosinophils # (auto) 0.2 10 ^3/uL (0-0.8); Hemoglobin 8.1 g/dL (12.2-16.2); Monocytes # (auto) 0.4 10 ^3/uL (0-1.3); Neutrophils # (auto) 5.3 10 ^3/uL (1.6-8.6)
[2021-12-26 10:37] LABS: Basophils % (auto) 1.4 % (0.0-2.0); Eosinophils % (auto) 2.9 % (0.0-7.0); Hematocrit 25.4 % (36.0-46.0); Lymphocytes % (auto) 14.2 % (10.0-50.0); Mean Corpuscular Hgb Conc. 31.9 g/dL (32.0-36.0); Mean Corpuscular Volume 97.1 fL (80.0-100.0); Monocytes % (auto) 6.2 % (0.0-12.0); Neutrophils % (auto) 75.3 % (37.0-80.0); Red Blood Cells 2.61 10^6/uL (4.0-5.20); Red Cell Distribution Width 15.2 % (11.8-14.3)
[2021-12-26 10:47] LABS: BUN/Creatinine Ratio 6.9; Calcium 8.4 mg/dL (8.5-10.1); Potassium 4.5 mmol/L (3.5-5.1)
== END | disposition home or self-care (01) ==
LOC: LAB 09:53
PROVIDERS: ATTEND Family Medicine
DX: N25.9 Disorder resulting from impaired renal tubular function, unspecified (principal); D50.8 Other iron deficiency anemias; I10 Essential (primary) hypertension; N18.6 End stage renal disease
CPT/HCPCS: 36415; 80048; 85025

== ENCOUNTER 2022-01-25 09:48 | Inpatient (IN) | payer MEDICARE, MEDICAID ==
[~2022-01-25] VITALS: Ht 152.4 cm; Wt 59.0 kg
[~2022-01-25 09:48] MED LIST changes: -AMIO200T33 PO; -FER325T PO; -HYDR50TA15 PO; -ISOS60TA24 PO
[2022-01-25] MEDS ORDERED: ATROPINE SULF 0.5 MG/5ML SYR ONE (10:04)
[2022-01-25] MEDS ORDERED: CALCIUM CHLOR(10%) 100MG/ML 10ML SYRINGE IV ONE ×2 (10:06→10:11)
[2022-01-25] MEDS ORDERED: ATROPINE SULFATE 1 MG/1 ML VIAL ONE (10:25)
[2022-01-25 10:41] LABS: Basophils # (auto) 0.1 10 ^3/uL (0-0.2); Basophils % (auto) 0.7 % (0.0-2.0); Eosinophils # (auto) 0.2 10 ^3/uL (0-0.8); Hemoglobin 9.2 g/dL (12.2-16.2); Lymphocytes # (auto) 1.1 10 ^3/uL (0.4-5.4); Lymphocytes % (auto) 14.5 % (10.0-50.0); Mean Corpuscular Hemoglobin 30.3 pg (28.0-32.0); Mean Corpuscular Hgb Conc. 31.8 g/dL (32.0-36.0); Mean Corpuscular Volume 95.5 fL (80.0-100.0); Monocytes # (auto) 0.5 10 ^3/uL (0-1.3); Monocytes % (auto) 6.6 % (0.0-12.0); Neutrophils # (auto) 5.8 10 ^3/uL (1.6-8.6); Neutrophils % (auto) 76.2 % (37.0-80.0); Red Blood Cells 3.04 10^6/uL (4.0-5.20); Red Cell Distribution Width 15.7 % (11.8-14.3); White Blood Cell 7.6 10^3/uL (4.4-10.8)
[2022-01-25] MEDS ORDERED: ATROPINE SULF 1 MG/10ml SYR IV ONE ×2 (10:45)
[2022-01-25 10:50] LABS: Albumin 3.2 g/dL (3.4-5.0); Calcium 10.2 mg/dL (8.5-10.1); Magnesium 2.9 mg/dL (1.6-2.6); Potassium 4.5 mmol/L (3.5-5.1)
[2022-01-25 10:54] LABS: BUN/Creatinine Ratio 7.7; Bilirubin, Total 0.3 mg/dL (0.2-1.0); Total Protein 6.9 g/dL (6.4-8.2)
[2022-01-25] MEDS ORDERED: DOPamine 1600MCG/ML D5W 250 ML IV ONE (11:15)
[2022-01-25 11:55] LABS: Partial Thromboplastin Time 26.5 sec (24.6-33.4)
[2022-01-25] MEDS ORDERED: PROMETHAZINE HCL 25 MG/ML 1ML IV ONE ×2 (12:15→14:45)
[2022-01-25] MEDS ORDERED: hydrALAZINE HCL 20 MG/ML VL IV ONE (13:00)
[2022-01-25] MEDS ORDERED: levoFLOXacin 750MG 150 ML IV ONE (13:00)
[2022-01-25] MEDS ORDERED: ALBUTEROL SULF 2.5 MG/0.5ML(0.5%) NEB SOLN NEB PRN (13:30)
[2022-01-25 13:40] VITALS: BP 202/58
[2022-01-25] MEDS ORDERED: MORPHINE SULFATE INJ 2 MG/ml SYRG IV PRN (13:45)
[2022-01-25] MEDS ORDERED: NITROGLYCERIN 0.4 MG SL TAB SL PRN (13:45)
[2022-01-25 14:24] LABS: Cholesterol 102 mg/dL (< 200); HDL Cholesterol 52 mg/dL (40-59); LDL Cholesterol 56 mg/dL (< 100); Triglycerides 75 mg/dL (< 150)
[2022-01-25] MEDS ORDERED: PANTOPRAZOLE 40 MG/10 ML VIAL INJ IV ONE (14:45)
[2022-01-25 19:18] LABS: Urine Bacteria NONE SEEN /hpf (None Seen); Urine Blood Negative /uL (Negative); Urine Specific Gravity 1.009 (1.001-1.035); Urine WBC 1 /hpf (0 - 5)
[2022-01-25] MEDS ORDERED: ONDANSETRON HCL 4 MG/2 ML VIAL IV PRN (21:45)
[2022-01-25] MEDS: hydrALAZINE HCL 20 MG/ML VL IV PRN (22:42)
[2022-01-26 05:48] LABS: Basophils # (auto) 0 10 ^3/uL (0-0.2); Basophils % (auto) 0.3 % (0.0-2.0); Eosinophils # (auto) 0 10 ^3/uL (0-0.8); Eosinophils % (auto) 0.4 % (0.0-7.0); Hematocrit 31.5 % (36.0-46.0); Lymphocytes # (auto) 0.7 10 ^3/uL (0.4-5.4); Lymphocytes % (auto) 6.7 % (10.0-50.0); Mean Corpuscular Hemoglobin 30.1 pg (28.0-32.0); Mean Corpuscular Hgb Conc. 31.8 g/dL (32.0-36.0); Mean Corpuscular Volume 94.7 fL (80.0-100.0); Monocytes # (auto) 0.8 10 ^3/uL (0-1.3); Neutrophils # (auto) 9.5 10 ^3/uL (1.6-8.6); Neutrophils % (auto) 85.6 % (37.0-80.0); Red Blood Cells 3.32 10^6/uL (4.0-5.20); White Blood Cell 11.1 10^3/uL (4.4-10.8)
[2022-01-26 06:09] LABS: Albumin 3.2 g/dL (3.4-5.0); Potassium 4.6 mmol/L (3.5-5.1)
[2022-01-26 06:11] LABS: BUN/Creatinine Ratio 7.3
[2022-01-26 06:19] LABS: Bilirubin, Total 0.4 mg/dL (0.2-1.0); Total Protein 7.2 g/dL (6.4-8.2)
[2022-01-26] MEDS ORDERED: cefTRIAXone 1GM/50ML D5W 50 ML IV SCH (09:00)
[2022-01-26] MEDS ORDERED: AZITHROMYCIN 500MG/ 250ML 250 ML IV SCH (10:00)
[2022-01-26] MEDS: FUROSEMIDE 40 MG/4 ML VIAL IV SCH (18:10)
[2022-01-26] MEDS: hydrALAZINE HCL 20 MG/ML VL IV PRN (21:13)
[2022-01-26 22:32] VITALS: BP 143/46
[2022-01-26] MEDS ORDERED: AMIO200T4 PO (23:42)
[2022-01-26] MEDS ORDERED: CLON0.1T PO (23:42)
[2022-01-27] VITALS (8 sets, daily range): BP systolic 119–175; BP diastolic 44–75
[2022-01-27] MEDS: FUROSEMIDE 40 MG/4 ML VIAL IV SCH ×2 (05:50→18:12)
[2022-01-27 06:56] LABS: Basophils # (auto) 0 10 ^3/uL (0-0.2); Basophils % (auto) 0.5 % (0.0-2.0); Eosinophils # (auto) 0.1 10 ^3/uL (0-0.8); Hematocrit 26.4 % (36.0-46.0); Hemoglobin 8.8 g/dL (12.2-16.2); Lymphocytes % (auto) 13.5 % (10.0-50.0); Mean Corpuscular Hemoglobin 31.2 pg (28.0-32.0); Mean Corpuscular Hgb Conc. 33.5 g/dL (32.0-36.0); Mean Corpuscular Volume 93.2 fL (80.0-100.0); Monocytes # (auto) 0.6 10 ^3/uL (0-1.3); Monocytes % (auto) 8.4 % (0.0-12.0); Neutrophils # (auto) 5.6 10 ^3/uL (1.6-8.6); Neutrophils % (auto) 75.6 % (37.0-80.0); Nucleated Red Blood Cells % 0.1 %; Red Blood Cells 2.83 10^6/uL (4.0-5.20); White Blood Cell 7.5 10^3/uL (4.4-10.8)
[2022-01-27] MEDS ORDERED: SODIUM CHL 0.9% 1000 ML BAG XX ONE (07:00)
[2022-01-27 07:03] LABS: Potassium 3.9 mmol/L (3.5-5.1)
[2022-01-27 07:06] LABS: BUN/Creatinine Ratio 8.7; Calcium 8.3 mg/dL (8.5-10.1); Magnesium 2.3 mg/dL (1.6-2.6)
[2022-01-27] MEDS ORDERED: levoFLOXacin 500 MG TAB PO SCH (10:00)
[2022-01-27] MEDS ORDERED: LIDOCAINE 2%HCL (LOCAL ANESTH.) INJ 10ml MDV ONE (11:06)
[2022-01-27] MEDS: hydrALAZINE HCL 20 MG/ML VL IV PRN (14:04)
[2022-01-27] MEDS ORDERED: fentaNYL CITRATE 100 MCG/2 ML VL ONE (14:21)
[2022-01-27] MEDS ORDERED: MIDAZOLAM HCL 2MG/2ML 2ml VIAL (1mg/ml) ONE (14:21)
[2022-01-27] MEDS ORDERED: VANCOMYCIN HCL 1000 MG VL ONE (14:21)
[2022-01-27] MEDS ORDERED: LIDOCAINE 2%HCL (LOCAL ANESTH.) INJ 20ML MDV ONE ×2 (14:22→14:23)
[2022-01-27] MEDS ORDERED: VANCOMYCIN 1GM/250ML 250 ML IV ONE ×2 (14:23→17:15)
[2022-01-27] MEDS ORDERED: methIMAzole 5 MG TAB PO ONE (15:00)
[2022-01-27] MEDS ORDERED: HYDROcodone-ACET 5/325MG TAB PO PRN (19:30)
[2022-01-27] MEDS ORDERED: EPOETIN ALFA-EPBX 4,000 UNIT/ML VIAL SC ONE (21:00)
[2022-01-27] MEDS: methIMAzole 5 MG TAB PO SCH (21:11)
[2022-01-28 01:39] VITALS: BP 149/44
[2022-01-28] MEDS ORDERED: VANCOMYCIN PER PHARMACY 0 MG IV ONE (03:00)
[2022-01-28] MEDS: FUROSEMIDE 40 MG/4 ML VIAL IV SCH (06:00)
[2022-01-28 08:30] VITALS: BP 155/39
[2022-01-28 08:50] VITALS: BP 155/39
[2022-01-28 09:13] LABS: Basophils # (auto) 0 10 ^3/uL (0-0.2); Basophils % (auto) 0.5 % (0.0-2.0); Eosinophils # (auto) 0 10 ^3/uL (0-0.8); Eosinophils % (auto) 0.6 % (0.0-7.0); Hematocrit 31.8 % (36.0-46.0); Hemoglobin 9.9 g/dL (12.2-16.2); Lymphocytes # (auto) 0.7 10 ^3/uL (0.4-5.4); Lymphocytes % (auto) 10.3 % (10.0-50.0); Mean Corpuscular Hemoglobin 29.3 pg (28.0-32.0); Mean Corpuscular Volume 94.3 fL (80.0-100.0); Monocytes # (auto) 0.6 10 ^3/uL (0-1.3); Monocytes % (auto) 8.2 % (0.0-12.0); Neutrophils # (auto) 5.8 10 ^3/uL (1.6-8.6); Neutrophils % (auto) 80.4 % (37.0-80.0); Nucleated Red Blood Cells % 0.1 %; Red Blood Cells 3.37 10^6/uL (4.0-5.20); Red Cell Distribution Width 15.2 % (11.8-14.3); White Blood Cell 7.3 10^3/uL (4.4-10.8)
[2022-01-28] MEDS: methIMAzole 5 MG TAB PO SCH (09:17)
[2022-01-28 09:32] LABS: Potassium 3.9 mmol/L (3.5-5.1)
[2022-01-28 09:33] LABS: Calcium 9.2 mg/dL (8.5-10.1)
[2022-01-28] MEDS ORDERED: METH10TA6 PO (11:31)
[2022-01-28] MEDS ORDERED: DOXY-286 PO (11:31)
[2022-01-28 12:04] VITALS: BP_SYST 170; BP_SYST 96; BP_DIAS 33; BP_DIAS 65
[2022-01-28] MEDS: hydrALAZINE HCL 20 MG/ML VL IV PRN (12:29)
[2022-01-28 13:00] VITALS: BP 96/32
== END 2022-01-28 14:18 | disposition home or self-care (01) | DRG 242 ==
LOC: ER 09:48 → TELE 13:34 → TELE-WESTW 01-26 22:25
PROVIDERS: ADMIT Registered Nurse; ATTEND Internal Medicine
PROC: 02HV33Z Insertion of Infusion Device into Superior Vena Cava, Percutaneous Approach (ICD-10-PCS; 2022-01-25)
PROC: B548ZZA Ultrasonography of Superior Vena Cava, Guidance (ICD-10-PCS; 2022-01-25)
PROC: 0JH606Z Insertion of Pacemaker, Dual Chamber into Chest Subcutaneous Tissue and Fascia, Open Approach (ICD-10-PCS; principal; 2022-01-27)
PROC: 02H63JZ Insertion of Pacemaker Lead into Right Atrium, Percutaneous Approach (ICD-10-PCS; 2022-01-27)
PROC: 02HK3JZ Insertion of Pacemaker Lead into Right Ventricle, Percutaneous Approach (ICD-10-PCS; 2022-01-27)
PROC: 5A1D70Z Performance of Urinary Filtration, Intermittent, Less than 6 Hours Per Day (ICD-10-PCS; 2022-01-27)
DX: I49.5 Sick sinus syndrome (principal); I50.33 Acute on chronic diastolic (congestive) heart failure; N18.6 End stage renal disease; J15.6 Pneumonia due to other Gram-negative bacteria; I13.2 Hypertensive heart and chronic kidney disease with heart failure and with stage 5 chronic kidney disease, or end stage renal disease; E44.0 Moderate protein-calorie malnutrition; E87.4 Mixed disorder of acid-base balance; R65.10 Systemic inflammatory response syndrome (SIRS) of non-infectious origin without acute organ dysfunction; E11.22 Type 2 diabetes mellitus with diabetic chronic kidney disease; Z99.2 Dependence on renal dialysis; I48.91 Unspecified atrial fibrillation; Z68.24 Body mass index [BMI] 24.0-24.9, adult; D63.1 Anemia in chronic kidney disease; E05.90 Thyrotoxicosis, unspecified without thyrotoxic crisis or storm; E03.9 Hypothyroidism, unspecified; E87.5 Hyperkalemia; F03.90 Unspecified dementia, unspecified severity, without behavioral disturbance, psychotic disturbance, mood disturbance, and anxiety; R09.02 Hypoxemia; Z79.01 Long term (current) use of anticoagulants; Z90.710 Acquired absence of both cervix and uterus; Z20.822 Contact with and (suspected) exposure to COVID-19; Z90.49 Acquired absence of other specified parts of digestive tract; Z79.84 Long term (current) use of oral hypoglycemic drugs
CPT/HCPCS: 36415; 36600; 71045; 80048; 80053; 80061; 80202; 81001; 82330; 82805; 83036; 83605; 83735; 83880; 84439; 84443; 84484; 85025; 85610; 85730; 86850; 86900; 86901; 87040; 87077; 87081; 90935; 93005; 96365; 96375; 99152; 99153; 99291; C1785; C9113; G0378; J0461; J0696; J1956; J2001; J2250

== ENCOUNTER → 2022-02-03 | Outpatient (CLI) | payer MEDICARE, MEDICAID ==
[~2022-02-03] MED LIST changes: +AMIO200T4 PO; +CLON0.1T PO; +DOXY-286 PO; +METH10TA6 PO
[2022-02-03 10:55] VITALS: BP 140/80
[2022-02-03 11:10] VITALS: BP 168/72
== END | disposition home or self-care (01) ==
LOC: CHF HDHVI 10:57
PROVIDERS: ATTEND Internal Medicine Cardiovascular Disease
DX: Z51.89 Encounter for other specified aftercare (principal)
CPT/HCPCS: G0463

== ENCOUNTER 2022-09-26 03:08 | Inpatient (IN) | payer MEDICARE, MEDICAID ==
[~2022-09-26] VITALS: Ht 160 cm; Wt 60.0 kg
[2022-09-26 03:51] LABS: Basophils # (auto) 0.1 10 ^3/uL (0-0.2); Basophils % (auto) 0.7 % (0.0-2.0); Eosinophils # (auto) 0.3 10 ^3/uL (0-0.8); Eosinophils % (auto) 2.8 % (0.0-7.0); Hematocrit 37.5 % (36.0-46.0); Hemoglobin 12.6 g/dL (12.2-16.2); Lymphocytes # (auto) 0.8 10 ^3/uL (0.4-5.4); Lymphocytes % (auto) 8.5 % (10.0-50.0); Mean Corpuscular Hemoglobin 32.7 pg (28.0-32.0); Mean Corpuscular Hgb Conc. 33.7 g/dL (32.0-36.0); Mean Corpuscular Volume 97.3 fL (80.0-100.0); Monocytes # (auto) 0.6 10 ^3/uL (0-1.3); Monocytes % (auto) 6.5 % (0.0-12.0); Neutrophils # (auto) 7.4 10 ^3/uL (1.6-8.6); Neutrophils % (auto) 81.5 % (37.0-80.0); Nucleated Red Blood Cells % 0.1 %; Red Blood Cells 3.85 10^6/uL (4.0-5.20); Red Cell Distribution Width 14.3 % (11.8-14.3); White Blood Cell 9.1 10^3/uL (4.4-10.8)
[2022-09-26 04:11] LABS: Potassium 3.4 mmol/L (3.5-5.1)
[2022-09-26 04:17] LABS: Albumin 3.1 g/dL (3.4-5.0); BUN/Creatinine Ratio 6.1 (10.0-20.0); Calcium 8.4 mg/dL (8.5-10.1)
[2022-09-26 04:25] LABS: Bilirubin, Total 0.3 mg/dL (0.2-1.0); Total Protein 7.7 g/dL (6.4-8.2)
[2022-09-26 06:42] LABS: Urine Bacteria NONE SEEN /hpf (None Seen); Urine Blood Negative /uL (Negative); Urine Specific Gravity 1.003 (1.001-1.035); Urine WBC 1 /hpf (0 - 5)
[2022-09-26] MEDS ORDERED: ASPirin 325 MG TAB PO ONE (11:00)
[2022-09-26] MEDS ORDERED: DEXTROSE (50%) 50ML SYRG IV PRN (12:30)
[2022-09-26] MEDS ORDERED: hydrALAZINE HCL 20 MG/ML VL IV PRN (13:00)
[2022-09-26 13:25] LABS: Magnesium 2.8 mg/dL (1.6-2.6); Phosphorus 3.9 mg/dL (2.5-4.90)
[2022-09-26] MEDS ORDERED: HEPARIN SODIUM (PORCINE) 5000 UNITS/ML 1ML VIAL SC SCH (14:00)
[2022-09-26 15:00] VITALS: BP 166/50
[2022-09-26] MEDS ORDERED: InsuLIN REG 1unit/0.01ml Soln (100units/ml) SC SCH (17:00)
[2022-09-26] MEDS ORDERED: ACCU-CHEK COMFORT CURVE STRIP VI SCH (17:00)
[2022-09-26] MEDS ORDERED: LORazepam 2MG/ML-1ML VIAL IV PRN (17:30)
[2022-09-26] MEDS ORDERED: PRAVASTATIN SODIUM 20 MG TAB PO SCH (18:00)
[2022-09-26] MEDS ORDERED: methIMAzole 5 MG TAB PO SCH (22:00)
[2022-09-26] MEDS ORDERED: cloNIDine HCL 0.1 MG TAB PO SCH (22:00)
[2022-09-26] MEDS ORDERED: CARVEDILOL 3.125 MG TAB PO SCH (22:00)
[2022-09-26] MEDS ORDERED: DOCUSATE SOD 100 MG CAP PO SCH (22:00)
[2022-09-27] MEDS ORDERED: APIXABAN 2.5 MG TAB PO SCH (10:00)
[2022-09-27] MEDS ORDERED: NIFEdipine ER 30 MG TAB PO SCH (10:00)
[2022-09-27] MEDS ORDERED: AMIODARONE HCL 200 MG TAB PO SCH (10:00)
[2022-09-27] MEDS ORDERED: PANTOPRAZOLE 40 MG TAB PO SCH (10:00)
[2022-09-27] MEDS ORDERED: LOSARTAN POTASSIUM 50 MG TAB PO SCH (10:00)
[2022-09-27] MEDS ORDERED: ASPirin 81 mg TAB PO SCH (10:00)
== END 2022-09-26 17:55 | disposition left against medical advice (07) | DRG 280 ==
LOC: EDUNIT# 03:08 → EDBD 03:08 → ER 03:08 → TELE 12:33
PROVIDERS: ADMIT Nurse Practitioner Family; ATTEND Nurse Practitioner Family
DX: I21.4 Non-ST elevation (NSTEMI) myocardial infarction (principal); N18.6 End stage renal disease; I13.2 Hypertensive heart and chronic kidney disease with heart failure and with stage 5 chronic kidney disease, or end stage renal disease; I16.1 Hypertensive emergency; E11.22 Type 2 diabetes mellitus with diabetic chronic kidney disease; E78.5 Hyperlipidemia, unspecified; F03.90 Unspecified dementia, unspecified severity, without behavioral disturbance, psychotic disturbance, mood disturbance, and anxiety; E05.90 Thyrotoxicosis, unspecified without thyrotoxic crisis or storm; I48.91 Unspecified atrial fibrillation; Z53.29 Procedure and treatment not carried out because of patient's decision for other reasons; I50.9 Heart failure, unspecified; Z79.01 Long term (current) use of anticoagulants; Z79.82 Long term (current) use of aspirin; Z79.899 Other long term (current) drug therapy; Z90.710 Acquired absence of both cervix and uterus; Z99.2 Dependence on renal dialysis; Z90.49 Acquired absence of other specified parts of digestive tract; Z20.822 Contact with and (suspected) exposure to COVID-19
CPT/HCPCS: 36415; 70450; 71045; 80053; 81001; 83036; 83735; 83880; 84100; 84484; 85025; 87426; 93005; 93886; 96372; 97163; 99291; G0378

== ENCOUNTER → 2023-05-05 | Outpatient (CLI) | payer MEDICARE, MEDICAID ==
[~2023-05-05] MED LIST changes: +AMIO200T13 PO; -AMIO200T4 PO; -LOSA-69 PO; +LOSA50TA46 PO; +METH-552 PO; -METH10TA6 PO; +SIMV5TAB14 PO; -SIMV5TAB50 PO
== END | disposition home or self-care (01) ==
LOC: Rad HDHVI 10:35
PROVIDERS: ATTEND Internal Medicine Cardiovascular Disease
DX: I08.3 Combined rheumatic disorders of mitral, aortic and tricuspid valves (principal); R06.02 Shortness of breath; R42 Dizziness and giddiness
CPT/HCPCS: 93306

== ENCOUNTER → 2023-07-07 | Outpatient (CLI) | payer MEDICARE, MEDICAID ==
[~2023-07-07] MED LIST changes: +cloNIDine HCL 0.1 MG TAB ONE; +cloNIDine HCL 0.1 MG TAB PO ONE
[2023-07-07 12:40] VITALS: BP 223/75; PULSE 65; RESP 16; O2SAT 94
[2023-07-07 13:52] VITALS: BP 180/70; PULSE 60; RESP 16; O2SAT 94
== END | disposition home or self-care (01) ==
LOC: CHF HDHVI 12:29
PROVIDERS: ATTEND Internal Medicine Cardiovascular Disease
DX: Z01.818 Encounter for other preprocedural examination (principal); I11.9 Hypertensive heart disease without heart failure; R94.31 Abnormal electrocardiogram [ECG] [EKG]; I25.10 Atherosclerotic heart disease of native coronary artery without angina pectoris; R55 Syncope and collapse; R60.9 Edema, unspecified
CPT/HCPCS: 93005; G0463

== ENCOUNTER 2023-07-09 10:37 | Day surgery (SDC) | payer MEDICARE, MEDICAID ==
[2023-07-07 14:55] LABS: Basophils # (auto) 0.1 10 ^3/uL (0-0.2); Eosinophils # (auto) 0.4 10 ^3/uL (0-0.8); Lymphocytes # (auto) 1.1 10 ^3/uL (0.4-5.4); Mean Corpuscular Hgb Conc. 32.7 g/dL (32.0-36.0)
[2023-07-07 14:58] LABS: Basophils % (auto) 0.9 % (0.0-2.0); Eosinophils % (auto) 3.7 % (0.0-7.0); Hematocrit 25.6 % (36.0-46.0); Hemoglobin 8.4 g/dL (12.2-16.2); Lymphocytes % (auto) 11.2 % (10.0-50.0); Mean Corpuscular Hemoglobin 33.8 pg (28.0-32.0); Mean Corpuscular Volume 103.4 fL (80.0-100.0); Monocytes # (auto) 0.8 10 ^3/uL (0-1.3); Monocytes % (auto) 8.8 % (0.0-12.0); Neutrophils # (auto) 7.2 10 ^3/uL (1.6-8.6); Neutrophils % (auto) 75.4 % (37.0-80.0); Nucleated Red Blood Cells % 0.2 %; Red Blood Cells 2.48 10^6/uL (4.0-5.20); Red Cell Distribution Width 14.5 % (11.8-14.3); White Blood Cell 9.5 10^3/uL (4.4-10.8)
[2023-07-07 15:13] LABS: INR 1.05 (0.9-1.15); Partial Thromboplastin Time 25.9 SEC (24.5-34.5)
[2023-07-07 15:59] LABS: Chloride 100 mmol/L (98-107); Potassium 4.1 mmol/L (3.5-5.1); Sodium 138 mmol/L (136-145)
[2023-07-07 16:00] LABS: Anion Gap 6 (5-15); Carbon Dioxide 32 mmol/L (20-30)
[2023-07-07 16:01] LABS: Calcium 8.8 mg/dL (8.5-10.1)
[2023-07-07 16:05] LABS: BUN/Creatinine Ratio 5.7 (10.0-20.0); Blood Urea Nitrogen 28 mg/dL (9-23); Glucose 108 mg/dL (74-106)
[~2023-07-09] VITALS: Ht 154.9 cm; Wt 60.0 kg
[~2023-07-09 10:37] MED LIST changes: -DOXY-286 PO; -METF-370 PO; -cloNIDine HCL 0.1 MG TAB ONE; -cloNIDine HCL 0.1 MG TAB PO ONE
[2023-07-09] MEDS ORDERED: SODIUM CHL 0.9% 0 ML ONE (11:48)
[2023-07-09] MEDS ORDERED: fentaNYL CITRATE 100 MCG/2 ML VL ONE (11:48)
[2023-07-09] MEDS ORDERED: ANGIOMAX 250 MG VIAL IV ONE (11:48)
[2023-07-09] MEDS ORDERED: MIDAZOLAM HCL 2MG/2ML 2ml VIAL (1mg/ml) ONE (11:48)
[2023-07-09] MEDS ORDERED: LIDOCAINE 2%HCL (LOCAL ANESTH.) INJ 20ML MDV ONE (11:53)
[2023-07-09] MEDS ORDERED: IOHEXOL 350 MG/ML 100ML IJ ONE ×2 (11:53→12:08)
[2023-07-09] MEDS ORDERED: hydrALAZINE HCL 20 MG/ML VL ONE (12:30)
== END 2023-07-09 15:00 | disposition home or self-care (01) ==
LOC: CATH 10:37
PROVIDERS: ATTEND Internal Medicine Cardiovascular Disease
DX: R07.9 Chest pain, unspecified (principal); I48.91 Unspecified atrial fibrillation; I11.0 Hypertensive heart disease with heart failure; I50.9 Heart failure, unspecified; E11.40 Type 2 diabetes mellitus with diabetic neuropathy, unspecified; E78.5 Hyperlipidemia, unspecified; Z79.899 Other long term (current) drug therapy; Z90.710 Acquired absence of both cervix and uterus; Z98.891 History of uterine scar from previous surgery
CPT/HCPCS: 36415; 80048; 85025; 85610; 85730; 93458; 93571; C1894; J0360; J1644; J2250; J3010; Q9967; 99152

== ENCOUNTER 2024-06-14 14:16 | Inpatient (IN) | payer BC, MEDICAID ==
[~2024-06-14] VITALS: Ht 152.4 cm; Wt 65.5 kg
[~2024-06-14 14:16] MED LIST changes: +HYDR25TA88 PO; +LOSA-534 PO; -LOSA50TA46 PO; +METF-370 PO; +SEVE800T10 PO
--- NOTE | 2024-06-14 14:33 | ED.PDOC ---
History of Present Illness HPI Comments 84 y/o F, Hx of AFIB, DM, ESRD, HTN, pacemaker, and dementia, is BIBA for c/o ALOC, today. Per EMS report, family of the patient called after finding her altered at around 1000, this morning, from her normal baseline of being oriented to herself and current recent events. Patient was stated to have completed, earlier, a 3 day [id number] emergent dialysis session for "excessive fluids" and is reported to have had her "blood sugar levels drop" yesterday and the day prior. Patient was also endorsed on being Dx with a UTI following recent hospital visit at [facility] and placed on. On scene, patient was found with a blood glucose of 41 by EMS staff. En route, patient was given D10m with blood glucose improving to the 230's upon arrival to ED. At time of assessment, patient denies having any symptoms and is unsure onto reason for visit, today. Further Hx cannot be obtained at this time, due to patient's current altered state and absence of family/accounts receivable supervisor historians. Time Seen by MD: 14:10 Primary Care Provider: UNKNOWN Reviewed Notes: Nurses Notes, Pressroom Supervisor Notes, Medications, Allergies Allergies: Coded Allergies: NO KNOWN ALLERGIES (Unverified , 09/05/11) Home Meds Active Scripts Methimazole (Methimazole) 10 Mg Tab, 10 MG PO BID for 30 Days, #60 TAB Prov:SONNY HERNANDEZ MD 01/28/22 Docusate Sodium (Colace) 100 Mg Cap, 1 CAP PO BID PRN, #30 CAP Prov:HODA ADAMS MD 12/12/21 Pantoprazole Sodium Sesquihydr (Pantoprazole Sodium) 40 Mg Tab, 40 MG PO DAILY for 30 Days, #30 TAB Prov:HODA ADAMS MD 12/12/21 Apixaban Base (ELIQUIS) 2.5 Mg Tab, 2.5 MG PO DAILY for 30 Days, #30 TAB Prov:HODA ADAMS MD 12/12/21 Reported Medications Clonidine Hydrochloride (Clonidine Hcl) 0.1 Mg Tab, 1 TAB PO BID 01/26/22 Amiodarone HCl (Amiodarone HCl) 200 Mg Tab, 1 TAB PO DAILYPRN 01/26/22 Simvastatin (Simvastatin) 5 Mg Tab, 5 MG PO QPM 12/03/21 Losartan Potassium (Losartan Potassium) 50 Mg Tab, 50 MG PO DAILY for 30 Days, MG 12/03/21 Nifedipine (Nifedipine Er) 60 Mg Tab, 1 TAB PO DAILY 08/28/21 Carvedilol (Carvedilol) 6.25 Mg Tab, 1 TAB PO BID 08/28/21 Information Source: Patient, Emergency Med Personnel Mode of Arrival: EMS Severity: Moderate Timing: Hours Duration: Since onset Prehospital treatment: 12 Lead EKG, Accucheck, Travel Freight And Passenger Agent, Other (D10) Past Medical History PAST MEDICAL HISTORY: AFIB, Dementia, DM, ESRD, HTN Surgical History: Appendectomy, Cholecystectomy, , Hysterectomy, Pacemaker LEATHER GRAINER History: Denies all LEATHER GRAINER Hx Family History Family History: Reviewed,noncontributory to illness Social History Smoker: Non-Smoker Alcohol: Denies ETOH Use Drugs: Denies Drug Use Lives In: Home Constitutional: denies: chills, diaphoresis, fatigue, fever, malaise, sweats, weakness, others EENTM: denies: blurred vision, double vision, ear bleeding, ear discharge, ear drainage, ear pain, ear ringing, eye pain, eye redness, hearing loss, mouth pain, mouth swelling, nasal discharge, nose bleeding, nose congestion, nose pain, photophobia, tearing, throat pain, throat swelling, voice changes, others Respiratory: denies: cough, hemoptysis, orthopnea, SOB at rest, shortness of breath, SOB with excertion, stridor, wheezing, others Cardiovascular: denies: chest pain, dizzy spells, diaphoresis, Dyspnea on exertion, edema, irregular heart beat, left arm pain, lightheadedness, palpitations, PND, syncope, others Gastrointestinal: denies: abdomen distended, abdominal pain, blood streaked bowels, constipated, diarrhea, dysphagia, difficulty swallowing, hematemesis, melena, nausea, poor appetite, poor fluid intake, rectal bleeding, rectal pain, vomiting, others Genitourinary: denies: abnormal vagina bleeding, burning, dyspareunia, dysuria, flank pain, frequency, hematuria, incontinence, pain, , vagina discharge, urgency, others Neurological: reports: others (ALOC); denies: dizziness, fainting, headache, left sided numbness, left sided weakness, numbness, paresthesia, pre-existing de ficit, right sided numbness, right sided weakness, seizure, speech problems, tingling, tremors, weakness Musculoskeletal: denies: back pain, gout, joint pain, joint swelling, muscle pain, muscle stiffness, neck pain, others Integumetry: denies: bruises, change in color, change in hair/nails, dryness, laceration, lesions, lumps, rash, wounds, others Allergic/Immunocompromised: denies: Difficulty Healing, Frequent Infections, Hives, Itching, others Hematologic/Lymphatic: denies: anemia, blood clots, easy bleeding, easy bruising, swollen glands, others Endocrine: denies: excessive hunger, excessive sweating, excessive thirst, excessive urination, flushing, intolerance to cold, intolerance to heat, unexplained weight gain, unexplained weight loss, others Psychiatric: denies: anxiety, bipolar disorder, depression, hopeless, panic disorder, schizophrenia, sleepless, suicidal, others All Other Systems: Reviewed and Negative Physical Exam General Appearance: Mild Distress HEENT: Normal ENT Inspection, Pharynx Normal, TMs Normal Neck: Full Range of Motion, Non-Tender, Normal, Normal Inspection Respiratory: Chest Non-Tender, Lungs Clear, No Accessory Muscle Use, No Respiratory Distress, Normal Breath Sounds Cardiovascular: No Edema, No JVD, No Murmur, No Gallop, Regular Rate/Rhythm Breast Exam: Deferred Gastrointestinal: No Organomegaly, Non Tender, No Pulsatile Mass, Normal Bowel Sounds, Soft Genitalia: Deferred Pelvic: Deferred Rectal: Deferred Extremities: No calf tenderness, Normal capillary refill, No pedal edema Musculoskeletal : Apperance: Normal Neurologic: Alert, encyclopedia research worker II-XII nml as Tested, Motor Weakness, Normal Affect, Normal Mood, No Sensory Deficits Cerebellar Function: Normal Reflexes: Normal Skin: Dry, Pallor, Warm Lymphatic: No Adenopathy Was a procedure done? Was a procedure done?: No Differential Dx Considerations may include: hypoglycemia, encephalopathy, UTI, dehydration, electrolyte imbalance, viral syn drome X-Ray, Labs, Meds, VS Lab Test 06/14/24 14:29 Range/Units White Blood Count 10.7 4.4-10.8 10^3/uL Red Blood Count 4.02 4.0-5.20 10^6/uL Hemoglobin 12.0 L 12.2-16.2 g/dL Hematocrit 36.3 36.0-46.0 % Mean Corpuscular Volume 90.2 80.0-100.0 fL Mean Corpuscular Hemoglobin 29.8 28.0-32.0 pg Mean Corpuscular Hemoglobin Concent 33.1 32.0-36.0 g/dL Red Cell Distribution Width 18.8 H 11.8-14.3 % Platelet Count 148 140-450 10^3/uL Mean Platelet Volume 8.4 6.9-10.8 fL Neutrophils (%) (Auto) 82.3 H 37.0-80.0 % Lymphocytes (%) (Auto) 7.4 L 10.0-50.0 % Monocytes (%) (Auto) 6.7 0.0-12.0 % Eosinophils (%) (Auto) 3.1 0.0-7.0 % Basophils (%) (Auto) 0.5 0.0-2.0 % Neutrophils # (Auto) 8.8 H 1.6-8.6 10 ^3/uL Lymphocytes # (Auto) 0.8 0.4-5.4 10 ^3/uL Monocytes # (Auto) 0.7 0-1.3 10 ^3/uL Eosinophils # (Auto) 0.3 0-0.8 10 ^3/uL Basophils # (Auto) 0 0-0.2 10 ^3/uL Nucleated Red Blood Cells 0.0 % Sodium Level 133 L 136-145 mmol/L Potassium Level 3.6 3.5-5.1 mmol/L Chloride Level 94 L 98-107 mmol/L Carbon Dioxide Level 31 20-31 mmol/L Anion Gap 8 5-15 Blood Urea Nitrogen 25 H 9-23 mg/dL Creatinine 4.33 H 0.550-1.02 mg/dL Glomerular Filtration Rate Calc 10 >90 mL/min BUN/Creatinine Ratio 5.8 L 10.0-20.0 Serum Glucose 99 74-106 mg/dL Lactic Acid Level 1.2 0.4-2.0 mmol/L Calcium Level 9.5 8.7-10.4 mg/dL The patient's CBC and chemistry panel are within normal limits except for BUN of 25 and a creatinine of 4.33 The patient's glucose is 99 The chest x-ray shows: IMPRESSION: Mild cardiomegaly with mild pulmonary vascular congestion and bibasilar atelectasis. Underlying trace left-sided pleural effusion can not be excluded. Right IJ approach hemodialysis catheter terminating within the proximal right atrium. At this time, the patient was being admitted to the hospitalist The urine is pending at this time Images Reviewed?: Images reviewed and evaluated by me Time of 1ST Reevaluation: 14:40 Reevaluation 1ST: Unchanged Patient Education/Counseling: Other (patient is altered ) Family Education/Counseling: No Family Present Departure 1 Departure Time of Disposition: 16:25 Impression: Primary Impression: Metabolic encephalopathy Additional Impression: Hypoglycemia Disposition: 09 ADMITTED INPATIENT Admit to: Tele Condition: Fair Critical Care Note Critical Care Time?: Yes (45 min-critical care time only) Stability Stability form required: Yes Unstable for transfer: Telemetry monitoring (Telemetry monitoring required), ED Physician Assesment Heart Score Heart Score: Heart Score Response (Comments) Value History N/A 0 EKG N/A 0 Age N/A 0 Risk Factors N/A 0 Troponin N/A 0 Total 0 I personally scribed for GALI DUBOIS MD ([email or web address]) on 06/14/24 at 14:33. Electronically submitted by Darian Capellan ([email or web address]). GALI DUBOIS MD Jun 14, 2024 14:33
[2024-06-14 14:48] LABS: Basophils # (auto) 0 10 ^3/uL (0-0.2); Basophils % (auto) 0.5 % (0.0-2.0); Eosinophils # (auto) 0.3 10 ^3/uL (0-0.8); Eosinophils % (auto) 3.1 % (0.0-7.0); Hematocrit 36.3 % (36.0-46.0); Lymphocytes # (auto) 0.8 10 ^3/uL (0.4-5.4); Lymphocytes % (auto) 7.4 % (10.0-50.0); Mean Corpuscular Hemoglobin 29.8 pg (28.0-32.0); Mean Corpuscular Hgb Conc. 33.1 g/dL (32.0-36.0); Mean Corpuscular Volume 90.2 fL (80.0-100.0); Monocytes # (auto) 0.7 10 ^3/uL (0-1.3); Monocytes % (auto) 6.7 % (0.0-12.0); Neutrophils # (auto) 8.8 10 ^3/uL (1.6-8.6); Neutrophils % (auto) 82.3 % (37.0-80.0); Platelet Count (auto) 148 10^3/uL (140-450); Red Blood Cells 4.02 10^6/uL (4.0-5.20); Red Cell Distribution Width 18.8 % (11.8-14.3); White Blood Cell 10.7 10^3/uL (4.4-10.8)
--- NOTE | 2024-06-14 14:51 | DVH ---
CHEST RADIOGRAPH Indication: weakness Technique: Single frontal view of the chest was obtained Comparison: XY CHEST PORTABLE on DOS: 09/26/22, CHEST PORTABLE on DOS: 01/27/22, CHEST PORTABLE on DOS: FINDINGS: Lines and Tubes: Right IJ approach hemodialysis catheter terminating within the proximal right atrium . Left-sided approach dual lead pacemaker terminating within right atrium and right ventricle. Lungs: Bronchovascular crowding with diffuse interstitial prominence. Indistinctness of the left hemidiaphragm. No pneumothorax. Cardiomediastinal contours: Mild cardiomegaly with moderate to heavy atherosclerotic calcification an d uncoiling of the aorta. Bones: No acute osseous abnormality. IMPRESSION: Mild cardiomegaly with mild pulmonary vascular congestion and bibasilar atelectasis. Underlying trace left-sided pleural effusion can not be excluded. Right IJ approach hemodialysis catheter terminating within the proximal right atrium.
[2024-06-14 14:59] LABS: Anion Gap 8 (5-15); Carbon Dioxide 31 mmol/L (20-31); Potassium 3.6 mmol/L (3.5-5.1)
[2024-06-14 15:00] LABS: Calcium 9.5 mg/dL (8.7-10.4)
[2024-06-14 15:05] LABS: BUN/Creatinine Ratio 5.8 (10.0-20.0); Blood Urea Nitrogen 25 mg/dL (9-23); Chloride 94 mmol/L (98-107); Glucose 99 mg/dL (74-106); Sodium 133 mmol/L (136-145)
[2024-06-14 16:54] VITALS: PULSE 60; RESP 18; O2SAT 99
[2024-06-14] MEDS ORDERED: DOCUSATE SOD 100 MG CAP PO PRN (17:30)
[2024-06-14] MEDS ORDERED: HYDROcodone-ACET 5/325MG TAB PO PRN (17:30)
[2024-06-14] MEDS ORDERED: ACETAMINOPHEN 325 MG TAB PO PRN (17:30)
--- NOTE | 2024-06-14 17:32 | DVHHP2 ---
History of Present Illness Reason for Visit: Metabolic encephalopathy History of Present Illness The patient is a 84-year-old female with past medical history of AFib, dementia, end-stage renal disease on hemodialysis, hypertension, and DM who presented to [facility] ED for evaluation of altered level of consciousness. Patient reports she was feeling generalized weakness after completing series of hemodialysis sessions for excessive fluids. When EMS arrived on the scene, patient's blood glucose was 41 mg/dL and was given D10 which improves blood glucose to the 230s. Patient also reports on being diagnosed with a UTI following recent hospital visit at [facility] and was placed on antibiotic regimen. Patient was seen and evaluated in the ED, laboratory data shows WBC 10.7, platelets 148, sodium 133, potassium 3.6, BUN 25, creatinine 4.33, GFR 10, glucose 99, blood pressure 228/78 trending down to 142/49, heart rate 60, temperature 99.2 F, O2 saturation 99% on oxygen. Chest x-ray revealing mild cardiomegaly with mild pulmonary vascular congestion and bibasilar atelectasis; underlying trace left-sided pleural effusion can not be excluded; right IJ approach hemodialysis catheter terminating within the proximal right atrium. Patient was given IV hydralazine, please see medication orders section in the computer. On my assessment, patient denies chest pain, no headache, no dizziness, no diaphoresis, no shortness of breaths, no nausea, no vomiting, no fever, no chills. Patient was admitted for further evaluation and medical management. Past Medical History AFIB, Dementia, DM, ESRD, HTN Past Surgical History Appendectomy, Cholecystectomy, , Hysterectomy, Pacemaker Family History Reviewed, noncontributory to the management of this case. Past Social History The patient lives at home, denies smoking, alcohol or illicit drugs abuse. Review of Systems Constitutional: Yes: Weakness; No: Fever, Chills, Sweats, Malaise, Other Eyes: No: Pain, Vision change, Conjunctivae inflammation, Eyelid inflammation, Other, Redness ENT: No: Ear pain, Ear discharge, Nose pain, Nose discharge, Nose congestion, Mouth pain, Mouth swelling, Throat pain, Throat swelling, Other Respiratory: No: Cough, Dry, Shortness of breath, SOB with excertion, Wheezing, Hemoptysis, Pleuritic Pain, Sputum, Wheezing, Other Cardiovascular: No: Chest Pain, Palpitations, Orthopnea, Paroxysmal Noc. Dyspnea, Edema, Lt Headedness, Other Gastrointestinal: No: Nausea, Vomiting, Abdominal Pain, Diarrhea, Constipation, Melena, Hematochezia, Other Genitourinary: No Dysuria, No Frequency, No Incontinence, No Hematuria, No Retention, No Other Musculoskeletal: No: other, neck pain, shoulder pain, arm pain, back pain, hand pain, leg pain, foot pain Skin: No: Rash, Lesions, Jaundice, Bruising, Other Neurological: Other (Altered level of consciousness); No: Weakness, Numbness, Incoordination, Change in speech, Confusion, Seizures Allergies: Coded Allergies: NO KNOWN ALLERGIES (Unverified , 09/05/11) Medications Current Medications Medications Dose Ordered Sig/Trent Route Start Time Stop Time Status Last Admin Dose Admin Multivit/Ca Carb/ B Cmplx/FA/Prenat 1 tab DAILY PO 06/15/24 10:00 UNV Sevelamer HCl 800 mg TIDWM PO 06/14/24 18:00 UNV Clonidine HCl 0.1 mg Q4HP PRN PO 06/14/24 17:30 UNV Atorvastatin Calcium 10 mg HS PO 06/14/24 22:00 UNV Carvedilol 6.25 mg Q12HR PO 06/14/24 22:00 UNV Amlodipine Besylate 5 mg DAILY PO 06/15/24 10:00 UNV Apixaban 2.5 mg BID PO 06/14/24 22:00 UNV Diagnostic Test (Pha) 1 strip ACHS 06/14/24 22:00 UNV Insulin Human Regular ACHS SC 06/14/24 22:00 UNV Dextrose 50 ml UD PRN IV 06/14/24 17:30 UNV Sodium Chloride 10 ml Q8HR IV 06/14/24 22:00 UNV Acetaminophen/ Hydrocodone Bitart 1 tab Q4HP PRN PO 06/14/24 17:30 UNV Ondansetron HCl 4 mg Q4HP PRN IV 06/14/24 17:30 UNV Docusate Sodium 100 mg BIDPRN PRN PO 06/14/24 17:30 UNV Acetaminophen 650 mg Q6HP PRN PO 06/14/24 17:30 UNV Exam Vital Signs Vital Signs Date Time Temp Pulse Resp B/P (MAP) Pulse Ox O2 Delivery O2 Flow Rate FiO2 06/14/24 16:54 60 22 99 06/14/24 16:54 Nasal Cannula* 2 28 06/14/24 16:22 99.2 228/78 (128) 99.2 General Appearance: Alert, Oriented X3, Cooperative, No acute distress HEENT: Atraumatic, PERRLA, EOMI, Mucous membr. moist/pink Respiratory: Normal air movement, Other (Diminished breath sounds) Cardiovascular: Regular rate, Normal S1, Normal S2, No murmurs Abdominal: Normal bowel sounds, Soft, No tenderness, No hepatospenomegaly, No masses Extremities: No clubbing, No cyanosis, No edema, Normal pulses, No tenderness/swelling Skin: No rashes, No breakdown, No significant lesion Neuro: Normal speech, Normal tone, Sensation intact, Cranial nerves 3-12 NL, Reflexes 2+, Other (Generalized weakness) Psych/Mental Status: Mental status NL, Mood NL Labs/Xrays Labs Test 06/14/24 16:32 06/14/24 14:29 Range/Units POC Glucose 69 L 70-106 mg/dl White Blood Count 10.7 4.4-10.8 10^3/uL Red Blood Count 4.02 4.0-5.20 10^6/uL Hemoglobin 12.0 L 12.2-16.2 g/dL Hematocrit 36.3 36.0-46.0 % Mean Corpuscular Volume 90.2 80.0-100.0 fL Mean Corpuscular Hemoglobin 29.8 28.0-32.0 pg Mean Corpuscular Hemoglobin Concent 33.1 32.0-36.0 g/dL Red Cell Distribution Width 18.8 H 11.8-14.3 % Platelet Count 148 140-450 10^3/uL Mean Platelet Volume 8.4 6.9-10.8 fL Neutrophils (%) (Auto) 82.3 H 37.0-80.0 % Lymphocytes (%) (Auto) 7.4 L 10.0-50.0 % Monocytes (%) (Auto) 6.7 0.0-12.0 % Eosinophils (%) (Auto) 3.1 0.0-7.0 % Basophils (%) (Auto) 0.5 0.0-2.0 % Neutrophils # (Auto) 8.8 H 1.6-8.6 10 ^3/uL Lymphocytes # (Auto) 0.8 0.4-5.4 10 ^3/uL Monocytes # (Auto) 0.7 0-1.3 10 ^3/uL Eosinophils # (Auto) 0.3 0-0.8 10 ^3/uL Basophils # (Auto) 0 0-0.2 10 ^3/uL Nucleated Red Blood Cells 0.0 % Sodium Level 133 L 136-145 mmol/L Potassium Level 3.6 3.5-5.1 mmol/L Chloride Level 94 L 98-107 mmol/L Carbon Dioxide Level 31 20-31 mmol/L Anion Gap 8 5-15 Blood Urea Nitrogen 25 H 9-23 mg/dL Creatinine 4.33 H 0.550-1.02 mg/dL Glomerular Filtration Rate Calc 10 >90 mL/min BUN/Creatinine Ratio 5.8 L 10.0-20.0 Serum Glucose 99 74-106 mg/dL Lactic Acid Level 1.2 0.4-2.0 mmol/L Calcium Level 9.5 8.7-10.4 mg/dL PATIENT: IVETH VASQUEZ ACCT: [id number] UNIT: [id number] : 1940 LOC: ER ROOM / BED: / AGE / SEX: 84 / F ADM STATUS: REG ER SERVICE 1419 ORDERING PHYSICIAN: GALI DUBOIS MD PROCEDURE(s): CXRP - CHEST PORTABLE REASON: weakness ORDER NUMBER(s): [id number], ACCESSION NUMBER(s): [id number] CHEST RADIOGRAPH Indication: weakness Technique: Single frontal view of the chest was obtained Comparison: XY CHEST PORTABLE on DOS: 09/26/22, CHEST PORTABLE on DOS: 01/27/22, CHEST PORTABLE on DOS: 01/25/22 FINDINGS: Lines and Tubes: Right IJ approach hemodialysis catheter terminating within the proximal right atrium. Left-sided approach dual lead pacemaker terminating within right atrium and right ventricle. Lungs: Bronchovascular crowding with diffuse interstitial prominence. Indistinctness of the left hemidiaphragm. No pneumothorax. Cardiomediastinal contours: Mild cardiomegaly with moderate to heavy atherosclerotic calcification and uncoiling of the aorta. Bones: No acute osseous abnormality. IMPRESSION: Mild cardiomegaly with mild pulmonary vascular congestion and bibasilar atelectasis. Underlying trace left-sided pleural effusion can not be excluded. Right IJ approach hemodialysis catheter terminating within the proximal right atrium. Assessment/Plan Assessment/Plan Metabolic encephalopathy Hypoglycemia Hyponatremia Hypertensive urgency Generalized weakness End-stage renal disease on hemodialysis Plan 1. Admit to telemetry unit 2. Breathing treatment 3. Pain control management 4. Management of fluids and electrolytes 5. Consultation for Nephrology 6. Diagnostic tests chest x-ray 7. DVT prophylaxis on Eliquis 8. Repeat labs CBC, CMP in a.m. 9. Continue with current medical management 10. Treatment plan discussed with patient and RN. Patient verbalized understanding. Plan discussed with: Patient, Other (RN) My Orders Orders - LURDES MOSQUEDA DNP Procedure Category Date Status Time B-Complex W/ C & PHA 06/15/24 Logged Folic Tablet 10:00 Sevelamer (Renagel) PHA 06/14/24 Logged 18:00 Clonidine Hcl Tablet PHA 06/14/24 Logged (Catapres Tablet) 17:30 Atorvastatin (Lipitor) PHA 06/14/24 Logged 22:00 Carvedilol Tablet PHA 06/14/24 Logged (Coreg Tablet) 22:00 Amlodipine Tablet PHA 06/15/24 Logged (Norvasc Tablet) 10:00 *[facility] CONS 06/14/24 Transmitted -[place] 17:19 Apixaban (Eliquis) PHA 06/14/24 Logged 22:00 Glucose Blood PHA 06/14/24 Logged (Accu-Chek Comfort 22:00 Insulin R (Human) PHA 06/14/24 Logged (Insulin R) 22:00 Dextrose 50% Syringe PHA 06/14/24 Logged 17:30 Allergies JOSE 06/14/24 In Process 17:19 Code Status CODE 06/14/24 Transmitted 17:19 Renal DIET 06/14/24 Transmitted Standard(2gna,3gk,Lopho) Dinner Sodium Chloride Lock PHA 06/14/24 Logged (Saline Lock Ns) 22:00 Oxygen Per Hour RT 06/14/24 Transmitted 17:19 Hydrocodone-Acet PHA 06/14/24 Logged 5/325mg Tab ([place] 17:30 Ondansetron Hcl PHA 06/14/24 Logged (Zofran) 17:30 Docusate Sodium PHA 06/14/24 Logged Capsule (Colace 17:30 Fall Risk Precautions [facility] 06/14/[address] 17:19 Complete Blood Count LAB 06/15/24 Verified 04:00 Comprehensive LAB 06/15/24 Verified Metabolic Panel 04:00 Condition: Serious [facility] 06/14/24 In Process 17:19 Acetaminophen Tablet [facility] 06/14/24 Logged (Tylenol Tablet) 17:30 Sequential [facility] 06/14/24 In Process Compression Device Admit ADMIT 06/14/24 Transmitted 17:31 Nitroglycerin [facility] 06/14/24 Transmitted Sublingual (Ntrostat 17:45 Morphine Sulfate [facility] 06/14/24 Transmitted Injection 17:45 Notify Md Of Changes [facility] 06/14/24 Transmitted From Base 17:31 Traffic Worker For [facility] 06/14/24 Transmitted 24 Hours 17:31 Emergency Dysrhythmia [facility] 06/14/24 Transmitted Protocol 17:31 Rhythm Strips Once [facility] 06/14/24 Transmitted Every Shift 17:31 Oxygen By Nasal 06/14/24 Transmitted Cannula 17:31 Problem List: (1) Metabolic encephalopathy (2) Hypoglycemia (3) Hyponatremia (4) Hypertensive emergency (5) Generalized weakness (6) End-stage renal disease on hemodialysis Date of Service: Jun 14, 2024 Billing Provider: LURDES MOSQUEDA DNP Common Visit Codes: [id number] INP/OBS CARE (HIGH) LURDES MOSQUEDA DNP Jun 14, 2024 17:32
[2024-06-14] MEDS ORDERED: NITROGLYCERIN 0.4 MG SL TAB SL PRN (17:45)
[2024-06-14] MEDS ORDERED: MORPHINE SULFATE INJ 2 MG/ml SYRG IV PRN (17:45)
[2024-06-14] MEDS: SEVELAMER 800 MG TAB PO SCH (18:00)
[2024-06-14] MEDS: cloNIDine HCL 0.1 MG TAB PO PRN (18:57)
[2024-06-14] MEDS: CARVEDILOL 3.125 MG TAB PO SCH (18:58)
[2024-06-14 19:38] VITALS: PULSE 60; RESP 12; O2SAT 100
[2024-06-14] MEDS ORDERED: amLODIPine BESYLATE 5 MG TAB PO ONE (21:00)
[2024-06-14] MEDS: InsuLIN REG 1unit/0.01ml Soln (100units/ml) SC SCH (22:00)
[2024-06-14] MEDS: ACCU-CHEK COMFORT CURVE STRIP VI SCH (22:00)
[2024-06-14] MEDS: DEXTROSE (50%) 50ML SYRG IV PRN (22:29)
[2024-06-14] MEDS: SODIUM CHLOR 0.9% PF (SALINE LOCK) 10ML VIAL/SYR IV SCH (22:30)
[2024-06-14 23:14] VITALS: BP_SYST 159; BP_SYST 169; BP_DIAS 56; BP_DIAS 63; PULSE 100; PULSE 60; RESP 16; TEMP 97.7; O2SAT 100; O2SAT 99
[2024-06-14] MEDS: ATORVASTATIN 20 MG TAB PO SCH (23:25)
[2024-06-14] MEDS: APIXABAN 2.5 MG TAB PO SCH (23:25)
[2024-06-15] VITALS (9 sets, daily range): BP systolic 100–172; BP diastolic 44–72; PULSE 60–63; RESP 12–18; TEMP 97.4–98.9; O2SAT 96–100
[2024-06-15] MEDS: hydrALAZINE HCL 20 MG/ML VL IV PRN (05:10)
[2024-06-15 07:18] LABS: Basophils # (auto) 0 10 ^3/uL (0-0.2); Basophils % (auto) 0.2 % (0.0-2.0); Eosinophils # (auto) 0.2 10 ^3/uL (0-0.8); Eosinophils % (auto) 2.2 % (0.0-7.0); Hematocrit 34.8 % (36.0-46.0); Hemoglobin 11.7 g/dL (12.2-16.2); Lymphocytes # (auto) 0.9 10 ^3/uL (0.4-5.4); Lymphocytes % (auto) 9.1 % (10.0-50.0); Mean Corpuscular Hemoglobin 30.2 pg (28.0-32.0); Mean Corpuscular Hgb Conc. 33.5 g/dL (32.0-36.0); Mean Corpuscular Volume 90.1 fL (80.0-100.0); Monocytes # (auto) 0.7 10 ^3/uL (0-1.3); Monocytes % (auto) 6.6 % (0.0-12.0); Neutrophils # (auto) 8.1 10 ^3/uL (1.6-8.6); Neutrophils % (auto) 81.9 % (37.0-80.0); Platelet Count (auto) 133 10^3/uL (140-450); Red Blood Cells 3.86 10^6/uL (4.0-5.20); Red Cell Distribution Width 18.8 % (11.8-14.3); White Blood Cell 9.9 10^3/uL (4.4-10.8)
[2024-06-15 07:34] LABS: Alanine Aminotransferase 19 U/L (7-40); Albumin 3.9 g/dL (3.2-4.8); Alkaline Phosphatase 97 U/L (46-116); Anion Gap 10 (5-15); Aspartate Aminotransferase 23 U/L (13-40); BUN/Creatinine Ratio 6.3 (10.0-20.0); Carbon Dioxide 26 mmol/L (20-31); Potassium 4.2 mmol/L (3.5-5.1); Total Protein 6.8 g/dL (5.7-8.2)
[2024-06-15 07:44] LABS: Bilirubin, Total 0.2 mg/dL (0.2-1.0); Blood Urea Nitrogen 33 mg/dL (9-23); Calcium 8.1 mg/dL (8.7-10.4); Chloride 96 mmol/L (98-107); Glucose 151 mg/dL (74-106); Sodium 132 mmol/L (136-145)
[2024-06-15] MEDS: B-COMPLEX W/ C & FOLIC ACID(NEPHROVITE TAB) PO SCH (09:47)
[2024-06-15] MEDS: amLODIPine BESYLATE 5 MG TAB PO SCH (09:48)
--- NOTE | 2024-06-15 10:18 | DVHINCON2 ---
Date of service: Jun 15, 2024 Referring Physician Mario Grullon, nurse practitioner Reason for Consultation End-stage renal disease to manage hemodialysis History of Present Illness Patient is a 84-year-old female with past medical history significant for end- stage renal disease on hemodialysis, Congestive heart failure AFIB, Dementia, DM, and HTN is admitted for altered level of consciousness. On admission nephrology is consulted to manage hemodialysis Past Medical History PAST MEDICAL HISTORY: AFIB, Dementia, DM, ESRD, HTN, Congestive heart failure Past Surgical History Surgical History: Appendectomy, Cholecystectomy, , Hysterectomy, Pacemaker, right IJ tunneled hemodialysis catheter Allergies: Coded Allergies: NO KNOWN ALLERGIES (Unverified , 09/05/11) Home Meds Active Scripts Methimazole (Methimazole) 10 Mg Tab, 10 MG PO BID for 30 Days, #60 TAB Prov:SONNY HERNANDEZ MD 01/28/22 Docusate Sodium (Colace) 100 Mg Cap, 1 CAP PO BID PRN, #30 CAP Prov:HODA ADAMS MD 12/12/21 Pantoprazole Sodium Sesquihydr (Pantoprazole Sodium) 40 Mg Tab, 40 MG PO DAILY for 30 Days, #30 TAB Prov:HODA ADAMS MD 12/12/21 Apixaban Base (ELIQUIS) 2.5 Mg Tab, 2.5 MG PO DAILY for 30 Days, #30 TAB Prov:HODA ADAMS MD 12/12/21 Reported Medications Clonidine Hydrochloride (Clonidine Hcl) 0.1 Mg Tab, 1 TAB PO BID 01/26/22 Amiodarone HCl (Amiodarone HCl) 200 Mg Tab, 1 TAB PO DAILYPRN 01/26/22 Simvastatin (Simvastatin) 5 Mg Tab, 5 MG PO QPM 12/03/21 Losartan Potassium (Losartan Potassium) 50 Mg Tab, 50 MG PO DAILY for 30 Days, MG 12/03/21 Nifedipine (Nifedipine Er) 60 Mg Tab, 1 TAB PO DAILY 08/28/21 Carvedilol (Carvedilol) 6.25 Mg Tab, 1 TAB PO BID 08/28/21 Current Medications Current Medications Medications (Trade) Dose Ordered Sig/Trent Route PRN Reason Start Time Stop Time Status Last Admin Multivit/Ca Carb/ B Cmplx/FA/Prenat (Nephro-Tc Tablet) 1 tab DAILY PO 12/25/24 10:00 06/15/24 09:47 Sevelamer HCl (Renagel) 800 mg TIDWM PO 06/14/24 18:00 06/15/24 09:49 Clonidine HCl (Catapres Tablet) 0.1 mg Q4HP PRN PO SBP>150 06/14/24 17:30 06/14/24 18:57 Atorvastatin Calcium (Lipitor) 10 mg HS PO 06/14/24 22:00 06/14/24 23:25 Carvedilol (Coreg Tablet) 6.25 mg Q12HR PO 06/14/24 22:00 06/15/24 09:49 Amlodipine Besylate (Norvasc Tablet) 5 mg DAILY PO 06/15/24 10:00 06/15/24 09:48 Apixaban (Eliquis) 2.5 mg BID PO 06/14/24 22:00 06/15/24 09:49 Diagnostic Test (Pha) (Accu-Chek Comfort Curve T) 1 strip ACHS 06/14/24 22:00 06/15/24 05:22 Insulin Human Regular (InsuLIN R) ACHS SC 06/14/24 22:00 Dextrose 50 ml UD PRN IV Blood Sugar LESS THAN 60 06/14/24 17:30 06/15/24 05:26 Sodium Chloride (Saline Lock Ns) 10 ml Q8HR IV 06/14/24 22:00 06/15/24 05:16 Acetaminophen/ Hydrocodone Bitart ([place] 5/325MG Tab) 1 tab Q4HP PRN PO MODERATE PAIN (4-6 PAIN SCALE) 06/14/24 17:30 Ondansetron HCl (Zofran) 4 mg Q4HP PRN IV NAUSEA / VOMITING 06/14/24 17:30 Docusate Sodium (Colace Capsule) 100 mg BIDPRN PRN PO FOR CONSTIPATION 06/14/24 17:30 Acetaminophen (Tylenol Tablet) 650 mg Q6HP PRN PO PAIN SCALE 1-3 OR TEMP>100.4 06/14/24 17:30 Nitroglycerin (Ntrostat Sublingual) 0.4 mg Q5MINP PRN SL FOR CHEST PAIN 06/14/24 17:45 Morphine Sulfate 2 mg Q30M PRN IV FOR CHEST PAIN 06/14/24 17:45 Hydralazine HCl (Apresoline Injection) 10 mg Q6HP PRN IV SBP>150 06/14/24 21:00 06/15/24 05:10 Family History: Patient reports no known family medical history. Review of Systems Can not be obtained H&P Exam Vital Signs/I&O Vital Sign Date Time Temp Pulse Resp B/P (MAP) Pulse Ox O2 Delivery O2 Flow Rate FiO2 06/15/24 09:49 62 134/64 06/15/24 09:00 98.2 12 100 98.2 06/14/24 23:14 Nasal Cannula* 2 28 Intake and Output 06/14/24 06/15/24 19:00 07:00 Intake Total 350 ml Output Total 0 ml Balance 350 ml Intake Oral 350 ml Output Urine Total 0 ml Physical Exam Patient is awake but confused Lungs clear to auscultation bilaterally Cardiac exam regular rate and rhythm GI soft nontender was normal Extremity 1+ edema Neuro patient is confused and forgetful Labs/Diagnostic Data Labs/Diagnostic Data Laboratory Tests Test 06/15/24 09:44 06/15/24 05:55 06/15/24 05:53 06/15/24 05:20 Range/Units POC Glucose 133 H 152 H 31 *L 70-106 mg/dl White Blood Count 9.9 4.4-10.8 10^3/uL Red Blood Count 3.86 L 4.0-5.20 10^6/uL Hemoglobin 11.7 L 12.2-16.2 g/dL Hematocrit 34.8 L 36.0-46.0 % Mean Corpuscular Volume 90.1 80.0-100.0 fL Mean Corpuscular Hemoglobin 30.2 28.0-32.0 pg Mean Corpuscular Hemoglobin Concent 33.5 32.0-36.0 g/dL Red Cell Distribution Width 18.8 H 11.8-14.3 % Platelet Count 133 L 140-450 10^3/uL Mean Platelet Volume 8.4 6.9-10.8 fL Neutrophils (%) (Auto) 81.9 H 37.0-80.0 % Lymphocytes (%) (Auto) 9.1 L 10.0-50.0 % Monocytes (%) (Auto) 6.6 0.0-12.0 % Eosinophils (%) (Auto) 2.2 0.0-7.0 % Basophils (%) (Auto) 0.2 0.0-2.0 % Neutrophils # (Auto) 8.1 1.6-8.6 10 ^3/uL Lymphocytes # (Auto) 0.9 0.4-5.4 10 ^3/uL Monocytes # (Auto) 0.7 0-1.3 10 ^3/uL Eosinophils # (Auto) 0.2 0-0.8 10 ^3/uL Basophils # (Auto) 0 0-0.2 10 ^3/uL Nucleated Red Blood Cells 0.0 % Sodium Level 132 L 136-145 mmol/L Potassium Level 4.2 3.5-5.1 mmol/L Chloride Level 96 L 98-107 mmol/L Carbon Dioxide Level 26 20-31 mmol/L Anion Gap 10 5-15 Blood Urea Nitrogen 33 H 9-23 mg/dL Creatinine 5.27 H 0.550-1.02 mg/dL Glomerular Filtration Rate Calc 8 >90 mL/min BUN/Creatinine Ratio 6.3 L 10.0-20.0 Serum Glucose 151 H 74-106 mg/dL Calcium Level 8.1 L 8.7-10.4 mg/dL Total Bilirubin 0.2 0.2-1.0 mg/dL Aspartate Amino Transferase (AST) 23 13-40 U/L Alanine Aminotransferase (ALT) 19 7-40 U/L Alkaline Phosphatase 97 46-116 U/L Total Protein 6.8 5.7-8.2 g/dL Albumin 3.9 3.2-4.8 g/dL Test 06/14/24 23:11 06/14/24 16:32 06/14/24 14:29 Range/Units POC Glucose 118 H 69 L 70-106 mg/dl White Blood Count 10.7 4.4-10.8 10^3/uL Red Blood Count 4.02 4.0-5.20 10^6/uL Hemoglobin 12.0 L 12.2-16.2 g/dL Hematocrit 36.3 36.0-46.0 % Mean Corpuscular Volume 90.2 80.0-100.0 fL Mean Corpuscular Hemoglobin 29.8 28.0-32.0 pg Mean Corpuscular Hemoglobin Concent 33.1 32.0-36.0 g/dL Red Cell Distribution Width 18.8 H 11.8-14.3 % Platelet Count 148 140-450 10^3/uL Mean Platelet Volume 8.4 6.9-10.8 fL Neutrophils (%) (Auto) 82.3 H 37.0-80.0 % Lymphocytes (%) (Auto) 7.4 L 10.0-50.0 % Monocytes (%) (Auto) 6.7 0.0-12.0 % Eosinophils (%) (Auto) 3.1 0.0-7.0 % Basophils (%) (Auto) 0.5 0.0-2.0 % Neutrophils # (Auto) 8.8 H 1.6-8.6 10 ^3/uL Lymphocytes # (Auto) 0.8 0.4-5.4 10 ^3/uL Monocytes # (Auto) 0.7 0-1.3 10 ^3/uL Eosinophils # (Auto) 0.3 0-0.8 10 ^3/uL Basophils # (Auto) 0 0-0.2 10 ^3/uL Nucleated Red Blood Cells 0.0 % Sodium Level 133 L 136-145 mmol/L Potassium Level 3.6 3.5-5.1 mmol/L Chloride Level 94 L 98-107 mmol/L Carbon Dioxide Level 31 20-31 mmol/L Anion Gap 8 5-15 Blood Urea Nitrogen 25 H 9-23 mg/dL Creatinine 4.33 H 0.550-1.02 mg/dL Glomerular Filtration Rate Calc 10 >90 mL/min BUN/Creatinine Ratio 5.8 L 10.0-20.0 Serum Glucose 99 74-106 mg/dL Lactic Acid Level 1.2 0.4-2.0 mmol/L Calcium Level 9.5 8.7-10.4 mg/dL Assessment End-stage renal disease on hemodialysis Congestive heart failure, ejection fraction 25% Diabetes mellitus type 2 Status post hypoglycemia Hypertension Dementia AFib Anemia of chronic kidney disease, well compensated Recommendations Hemodialysis tomorrow Resume home medications Renal diet Fluid restriction We will continue to follow Patient seen and examined by myself. I discussed my plan of care with the patient and the primary nurse at the bedside I would like to thank Mario for the consult, will follow up Plan discussed with: Patient, Other (Nurse) BRENDAN CROWE MD Jun 15, 2024 10:18
[2024-06-15 10:48] LABS: Magnesium 2.6 mg/dL (1.6-2.6)
[2024-06-15 10:49] LABS: Phosphorus 4.7 mg/dL (2.4-5.1)
--- NOTE | 2024-06-15 10:56 | DVHPN2 ---
Progress Note - Dictate Date Seen: Jun 15, 2024 Medical Necessity Reason Pt with a Central, PICC or Fol: No vital signs Vital Sign Date Time Temp Pulse Resp B/P (MAP) Pulse Ox O2 Delivery O2 Flow Rate FiO2 06/15/24 09:49 62 134/64 06/15/24 09:00 98.2 12 100 98.2 06/14/24 23:14 Nasal Cannula* 2 28 Total Intake and Output 06/14/24 06/14/24 06/15/24 15:00 23:00 07:00 Intake Total 350 ml Output Total 0 ml Balance 350 ml medications Current Medications Medications Dose Ordered Sig/Trent Route Start Time Stop Time Status Last Admin Dose Admin Multivit/Ca Carb/ B Cmplx/FA/Prenat 1 tab DAILY PO 06/15/24 10:00 06/15/24 09:47 1 TAB Sevelamer HCl 800 mg TIDWM PO 06/14/24 18:00 06/15/24 09:49 800 MG Clonidine HCl 0.1 mg Q4HP PRN PO 06/14/24 17:30 06/14/24 18:57 0.1 MG Atorvastatin Calcium 10 mg HS PO 06/14/24 22:00 06/14/24 23:25 10 MG Carvedilol 6.25 mg Q12HR PO 06/14/24 22:00 06/15/24 09:49 6.25 MG Amlodipine Besylate 5 mg DAILY PO 06/15/24 10:00 06/15/24 09:48 5 MG Apixaban 2.5 mg BID PO 06/14/24 22:00 06/15/24 09:49 2.5 MG Diagnostic Test (Pha) 1 strip ACHS 06/14/24 22:00 06/15/24 05:22 1 STRIP Insulin Human Regular ACHS SC 06/14/24 22:00 Dextrose 50 ml UD PRN IV 06/14/24 17:30 06/15/24 05:26 50 ML Sodium Chloride 10 ml Q8HR IV 06/14/24 22:00 06/15/24 05:16 10 ML Acetaminophen/ Hydrocodone Bitart 1 tab Q4HP PRN PO 06/14/24 17:30 Ondansetron HCl 4 mg Q4HP PRN IV 06/14/24 17:30 Docusate Sodium 100 mg BIDPRN PRN PO 06/14/24 17:30 Acetaminophen 650 mg Q6HP PRN PO 06/14/24 17:30 Nitroglycerin 0.4 mg Q5MINP PRN SL 06/14/24 17:45 Morphine Sulfate 2 mg Q30M PRN IV 06/14/24 17:45 Hydralazine HCl 10 mg Q6HP PRN IV 06/14/24 21:00 06/15/24 05:10 10 MG objective General Appearance: alert, no distress HEENT: EOMI, PERRLA, normal external inspect of ears, no icterus, no nasal drainage Neck: no carotid bruit, no jugular venous distention (JVD), no lymphadenopathy Chest: normal thorax Respiratory: clear to auscultation, normal air movement Cardiovascular: regular rate and rhythm, no diastolic murmur, no jugular venous distention (JVD), no rub, no systolic murmur Abdominal: soft, no hepatomegaly, no mass, no splenomegaly, no tenderness Genitourinary: grossly normal external Musculoskeletal: no joint tenderness, no swelling Extremities: normal pulses, no calf tenderness, no clubbing, no cyanosis, no edema Skin: no bruising, no jaundice, no rash Neurological: alert, No focal deficit laboratory and microbiology Laboratory Tests 06/15/24 05:55 Test 06/15/24 05:55 Range/Units Serum Glucose 151 H 74-106 mg/dL Problem List 1. Metabolic encephalopathy Monitor, neurology consult 2. Dementia Monitor 3. Hypertensive urgency Monitor, antihypertensives 4. ESRD on HD Monitor, nephrology consult 5. DM II with hypoglycemia Monitor, insulin ss, hypoglycemia tx 6. Hyponatremia Monitor, daily labs 7. Chronic anticoagulation Monitor, PPI, DVT prophylaxis 8. Hx A-fib Monitor, medications Assessment/Plan Subjective: Patient is awake and alert. Objective: Patient is Mongolian-speaking. I did speak with patient's daughter at bedside. Patient was admitted for metabolic encephalopathy most likely related to hypoglycemia. Patient is end-stage renal disease on hemodialysis. According to daughter patient has been on hemodialysis for 1 year. Patient was still taking metformin which is contraindicated. Patient was also recently prescribed Cipro 500 mg p.o. twice daily. Plan: Monitor mentation. Send urine for culture and urinalysis. Stop metformin. Continue insulin sliding scale. Plan discussed with: Patient, Other JAYDEN DODGE NP Jun 15, 2024 10:56
--- NOTE | 2024-06-15 12:14 | BSKYNEURO ---
[facility] Note # Demographics Consult Type: General Neurology Patient Location: Inpatient First Name: Alexa Last Name: Avery Date of : 1940 Age: 84 Gender: Female Facility: [facility] Time of Initial Page (): 06/15/2024, 11:35 Time of Return Call (): 06/15/2024, 11:35 # HPI History: 84 y/o F w/AF, DM, ESRD, HTN, and dementia who presented with AMS. She had been at HD and glucose was 41 that improved to 230s after D10. Daughter at bedside says she is better and back to normal. # Scores Time of exam and NIHSS (): 06/15/2024, 12:11 Level of Consciousness 1a: [0] = Alert; keenly responsive LOC Questions 1b: [1] = Answers one correctly LOC Commands 1c: [0] = Performs both tasks correctly Best Gaze 2: [0] = Normal Visual 3: [0] = No visual loss Facial Palsy 4: [0] = Normal symmetrical movements Motor Arm Left 5a: [0] = No drift Motor Arm Right 5b: [0] = No drift Motor Leg Left 6a: [0] = No drift Motor Leg Right 6b: [0] = No drift Limb Ataxia 7: [0] = Absent Sensory 8: [0] = Normal Best Language 9: [0] = No aphasia Dysarthria 10: [0] = Normal Extinction and Inattention 11: [0] = No abnormality NIHSS Total: 1 # Assessment Impression: - Altered Mental Status Suspect 2/2 to hypoglycemia, HD elevated creatinine, and dementia. Resolved now and back at baseline # Plan Thrombolytic/Intervention: NOT IV Thrombolysis or IA Intervention candidate Thrombolytic Exclusion: > 4.5 hours Intraarterial Exclusion: no signs of LVO Labs: - B12 - TSH - Ammonia Medication: - anticoagulation with NOAC Other: - If patient has any neurological deterioration please call me back immediately # Logistics Attestation of consult completion: The patient is located at: [facility]. Facility staff participated in the visit. I performed this telemedicine visit from my offsite office utilizing interactive 2 way audio and visual telecommunication technology. Consent: Verbal consent was obtained from the patient and/or family for this encounter. Total time spent in telemedicine encounter: I spent 15 minutes reviewing clinical data and/or imaging, obtaining history, examining the patient, communicating with the onsite care team, and in preparation of this report. # Demographics First Name: Alexa Last Name: [facility] Facility: [facility] Yes ROGER LUI MD Jun 15, 2024 12:14
[2024-06-15] MEDS: AMIODARONE HCL 200 MG TAB PO SCH (12:57)
[2024-06-15] MEDS: ONDANSETRON HCL 4 MG/2 ML VIAL IV PRN (14:35)
[2024-06-15] MEDS: LOSARTAN POTASSIUM 50 MG TAB PO SCH (21:55)
[2024-06-15] MEDS: hydrALAZINE HCL 25 MG TAB PO SCH (21:58)
[2024-06-16] VITALS (9 sets, daily range): BP systolic 101–148; BP diastolic 38–51; PULSE 59–60; RESP 18–20; TEMP 97.8–98.5; O2SAT 95–100
[2024-06-16] MEDS: SODIUM CHL 0.9% 1000 ML BAG XX ONE (07:00)
--- NOTE | 2024-06-16 13:16 | DVHPN2 ---
Progress Note - Dictate Date Seen: Jun 16, 2024 Medical Necessity Reason Pt with a Central, PICC or Fol: No vital signs Vital Sign Date Time Temp Pulse Resp B/P (MAP) Pulse Ox O2 Delivery O2 Flow Rate FiO2 06/16/24 13:00 98.1 60 20 145/51 (82) 96 98.1 06/16/24 07:48 Nasal Cannula* 3 32 Total Intake and Output 06/15/24 06/15/24 06/16/24 15:00 23:00 07:00 Intake Total 614 ml 750 ml Balance 614 ml 750 ml medications Current Medications Medications Dose Ordered Sig/Trent Route Start Time Stop Time Status Last Admin Dose Admin Multivit/Ca Carb/ B Cmplx/FA/Prenat 1 tab DAILY PO 06/15/24 10:00 06/16/24 09:16 1 TAB Sevelamer HCl 800 mg TIDWM PO 06/14/24 18:00 06/16/24 11:15 800 MG Clonidine HCl 0.1 mg Q4HP PRN PO 06/14/24 17:30 06/14/24 18:57 0.1 MG Atorvastatin Calcium 10 mg HS PO 06/14/24 22:00 06/15/24 21:54 10 MG Carvedilol 6.25 mg Q12HR PO 06/14/24 22:00 06/15/24 09:49 6.25 MG Apixaban 2.5 mg BID PO 06/14/24 22:00 06/16/24 09:16 2.5 MG Diagnostic Test (Pha) 1 strip ACHS 06/14/24 22:00 06/16/24 11:24 1 STRIP Insulin Human Regular ACHS SC 06/14/24 22:00 Dextrose 50 ml UD PRN IV 06/14/24 17:30 06/15/24 05:26 50 ML Sodium Chloride 10 ml Q8HR IV 06/14/24 22:00 06/16/24 12:01 10 ML Acetaminophen/ Hydrocodone Bitart 1 tab Q4HP PRN PO 06/14/24 17:30 Ondansetron HCl 4 mg Q4HP PRN IV 06/14/24 17:30 Docusate Sodium 100 mg BIDPRN PRN PO 06/14/24 17:30 Acetaminophen 650 mg Q6HP PRN PO 06/14/24 17:30 Nitroglycerin 0.4 mg Q5MINP PRN SL 06/14/24 17:45 Morphine Sulfate 2 mg Q30M PRN IV 06/14/24 17:45 Hydralazine HCl 50 mg Q12HR PO 06/15/24 22:00 Losartan Potassium 50 mg BID PO 06/15/24 22:00 06/15/24 21:55 50 MG Amiodarone HCl 200 mg DAILY PO 06/15/24 12:30 06/16/24 09:16 200 MG objective General Appearance: alert, no distress HEENT: EOMI, PERRLA, normal external inspect of ears, no icterus, no nasal drainage Neck: no carotid bruit, no jugular venous distention (JVD), no lymphadenopathy Chest: normal thorax Respiratory: clear to auscultation, normal air movement Cardiovascular: regular rate and rhythm, no diastolic murmur, no jugular venous distention (JVD), no rub, no systolic murmur Abdominal: soft, no hepatomegaly, no mass, no splenomegaly, no tenderness Genitourinary: grossly normal external Musculoskeletal: no joint tenderness, no swelling Extremities: normal pulses, no calf tenderness, no clubbing, no cyanosis, no edema Skin: no bruising, no jaundice, no rash Neurological: alert, No focal deficit laboratory and microbiology Laboratory Tests 06/15/24 05:55 Test 06/15/24 05:55 Range/Units Serum Glucose 151 H 74-106 mg/dL Problem List 1. Metabolic encephalopathy Monitor, neurology consult 2. Dementia Monitor 3. Hypertensive urgency Monitor, antihypertensives 4. ESRD on HD Monitor, nephrology consult 5. DM II with hypoglycemia Monitor, insulin ss, hypoglycemia tx 6. Hyponatremia Monitor, daily labs 7. Chronic anticoagulation Monitor, PPI, DVT prophylaxis 8. Hx A-fib Monitor, medications Assessment/Plan Subjective: Patient is awake and alert. Objective: Patient was admitted on June 14, 2024 for acute metabolic encephalopathy. Daughter states she has recently taken over her mother's care. I did review home medications with daughter. Patient has underlying dementia and end-stage renal disease on hemodialysis. Patient has a history of acute systolic heart failure with an estimated EF of 25%. Patient presented with hypoglycemia. According to meds patient was still taking metformin 500 mg p.o. daily. Patient was also recently prescribed Cipro 500 mg p.o. twice daily for UTI. Patient now is presenting with confusion and hypoglycemia. Plan is patient was instructed to stop metformin and Cipro. UA and urine culture is still pending. Patient had hemodialysis today. According to daughter patient's mentation is at is at baseline. Patient no longer wanted to be hospitalized. Patient decided to stay instead of leaving AMA. Plan: Continue current treatment. DC planning. Plan discussed with: Patient, Other JAYDEN DODGE NP Jun 16, 2024 13:16
--- NOTE | 2024-06-16 13:37 | DVHPN2 ---
Progress Note Date Seen: Jun 16, 2024 Medical Necessity Reason Pt with a Central, PICC or Fol: No Subjective Patient reports: No new complaints Other Systems: Patient seen and examined by myself today in follow-up Patient examined hemodialysis, blood pressure stable Objective vital signs Vital Sign Date Time Temp Pulse Resp B/P (MAP) Pulse Ox O2 Delivery O2 Flow Rate FiO2 06/16/24 13:00 98.1 60 20 145/51 (82) 96 98.1 06/16/24 07:48 Nasal Cannula* 3 32 Total Intake and Output 06/15/24 06/15/24 06/16/24 15:00 23:00 07:00 Intake Total 614 ml 750 ml Balance 614 ml 750 ml medications Current Medications Medications Dose Ordered Sig/Trent Route Start Time Stop Time Status Last Admin Dose Admin Multivit/Ca Carb/ B Cmplx/FA/Prenat 1 tab DAILY PO 06/15/24 10:00 06/16/24 09:16 1 TAB Sevelamer HCl 800 mg TIDWM PO 06/14/24 18:00 06/16/24 11:15 800 MG Clonidine HCl 0.1 mg Q4HP PRN PO 06/14/24 17:30 06/14/24 18:57 0.1 MG Atorvastatin Calcium 10 mg HS PO 06/14/24 22:00 06/15/24 21:54 10 MG Carvedilol 6.25 mg Q12HR PO 06/14/24 22:00 06/15/24 09:49 6.25 MG Apixaban 2.5 mg BID PO 06/14/24 22:00 06/16/24 09:16 2.5 MG Diagnostic Test (Pha) 1 strip ACHS 06/14/24 22:00 06/16/24 11:24 1 STRIP Insulin Human Regular ACHS SC 06/14/24 22:00 Dextrose 50 ml UD PRN IV 06/14/24 17:30 06/15/24 05:26 50 ML Sodium Chloride 10 ml Q8HR IV 06/14/24 22:00 06/16/24 12:01 10 ML Acetaminophen/ Hydrocodone Bitart 1 tab Q4HP PRN PO 06/14/24 17:30 Ondansetron HCl 4 mg Q4HP PRN IV 06/14/24 17:30 Docusate Sodium 100 mg BIDPRN PRN PO 06/14/24 17:30 Acetaminophen 650 mg Q6HP PRN PO 06/14/24 17:30 Nitroglycerin 0.4 mg Q5MINP PRN SL 06/14/24 17:45 Morphine Sulfate 2 mg Q30M PRN IV 06/14/24 17:45 Hydralazine HCl 50 mg Q12HR PO 06/15/24 22:00 Losartan Potassium 50 mg BID PO 06/15/24 22:00 06/15/24 21:55 50 MG Amiodarone HCl 200 mg DAILY PO 06/15/24 12:30 06/16/24 09:16 200 MG Examination: LUNGS:Normal, CVS:Normal, MSK:Normal laboratory and microbiology Laboratory Tests 06/15/24 05:55 Test 06/15/24 05:55 Range/Units Serum Glucose 151 H 74-106 mg/dL Microbiology Date/Time Source Procedure Growth Status 06/14/24 15:08 Blood Blood Culture - Preliminary NO GROWTH AFTER 24 HOURS OF INCUBATION. Resulted Problem List/Assessment/Plan Problem List/Assessment/Plan End-stage renal disease on hemodialysis Congestive heart failure, ejection fraction 25% Diabetes mellitus type 2 Status post hypoglycemia Hypertension Dementia AFib Anemia of chronic kidney disease, well compensated Recommendations Continue with UF to 3 L as tolerated Resume home medications Renal diet Fluid restriction Cardiology consult We will continue to follow Plan discussed with: Patient BRENDAN CROWE MD Jun 16, 2024 13:37
[2024-06-16 19:01] LABS: Chloride 99 mmol/L (98-107); Potassium 4.5 mmol/L (3.5-5.1)
[2024-06-16 19:03] LABS: Anion Gap 5 (5-15); Carbon Dioxide 29 mmol/L (20-31)
[2024-06-16 19:08] LABS: BUN/Creatinine Ratio 6.5 (10.0-20.0)
[2024-06-16 19:19] LABS: Blood Urea Nitrogen 29 mg/dL (9-23); Glucose 188 mg/dL (74-106); Sodium 133 mmol/L (136-145)
--- NOTE | 2024-06-16 19:22 | DVHDS2 ---
Discharge Summary Date of Admission Jun 14, 2024 at 17:31 Date of Discharge: Jun 16, 2024 Labs/Diagnostic Data: Laboratory Results Test 06/16/24 18:38 06/16/24 16:09 06/15/24 05:55 06/14/24 14:29 POC Glucose 110 mg/dl (70-106) White Blood Count 9.9 10^3/uL (4.4-10.8) Red Blood Count 3.86 10^6/uL (4.0-5.20) Hemoglobin 11.7 g/dL (12.2-16.2) Hematocrit 34.8 % (36.0-46.0) Mean Corpuscular Volume 90.1 fL (80.0-100.0) Mean Corpuscular Hemoglobin 30.2 pg (28.0-32.0) Mean Corpuscular Hemoglobin Concent 33.5 g/dL (32.0-36.0) Red Cell Distribution Width 18.8 % (11.8-14.3) Platelet Count 133 10^3/uL (140-450) Mean Platelet Volume 8.4 fL (6.9-10.8) Neutrophils (%) (Auto) 81.9 % (37.0-80.0) Lymphocytes (%) (Auto) 9.1 % (10.0-50.0) Monocytes (%) (Auto) 6.6 % (0.0-12.0) Eosinophils (%) (Auto) 2.2 % (0.0-7.0) Basophils (%) (Auto) 0.2 % (0.0-2.0) Neutrophils # (Auto) 8.1 10 ^3/uL (1.6-8.6) Lymphocytes # (Auto) 0.9 10 ^3/uL (0.4-5.4) Monocytes # (Auto) 0.7 10 ^3/uL (0-1.3) Eosinophils # (Auto) 0.2 10 ^3/uL (0-0.8) Basophils # (Auto) 0 10 ^3/uL (0-0.2) Nucleated Red Blood Cells 0.0 % Phosphorus Level 4.7 mg/dL (2.4-5.1) Magnesium Level 2.6 mg/dL (1.6-2.6) Total Bilirubin 0.2 mg/dL (0.2-1.0) Aspartate Amino Transferase (AST) 23 U/L (13-40) Alanine Aminotransferase (ALT) 19 U/L (7-40) Alkaline Phosphatase 97 U/L (46-116) Total Protein 6.8 g/dL (5.7-8.2) Albumin 3.9 g/dL (3.2-4.8) Parathyroid Hormone (Intact) 205.5 pg/mL (18.4-80.1) Hepatitis B Surface Antigen Negative (Negative) Lactic Acid Level 1.2 mmol/L (0.4-2.0) Other Laboratory Tests 06/15/24 05:55 Brief Hx & Hospital Course: The patient is a 84-year-old female with past medical history of AFib, dementia, end-stage renal disease on hemodialysis, hypertension, and DM who presented to [facility] ED for evaluation of altered level of consciousness. Patient reports she was feeling generalized weakness after completing series of hemodialysis sessions for excessive fluids. When EMS arrived on the scene, patient's blood glucose was 41 mg/dL and was given D10 which improves blood glucose to the 230s. Patient also reports on being diagnosed with a UTI following recent hospital visit at [facility] and was placed on antibiotic regimen. Patient was seen and evaluated in the ED, laboratory data shows WBC 10.7, platelets 148, sodium 133, potassium 3.6, BUN 25, creatinine 4.33, GFR 10, glucose 99, blood pressure 228/78 trending down to 142/49, heart rate 60, temperature 99.2 F, O2 saturation 99% on oxygen. Chest x-ray revealing mild cardiomegaly with mild pulmonary vascular congestion and bibasilar atelectasis; underlying trace left-sided pleural effusion can not be excluded; right IJ approach hemodialysis catheter terminating within the proximal right atrium. Patient was given IV hydralazine, please see medication orders section in the computer. On my assessment, patient denies chest pain, no headache, no dizziness, no diaphoresis, no shortness of breaths, no nausea, no vomiting, no fever, no chills. Patient was admitted for further evaluation and medical management. Patient was admitted on June 14, 2024 for acute metabolic encephalopathy. Daughter states she has recently taken over her mother's care. I did review home medications with daughter. Patient has underlying dementia and end-stage renal disease on hemodialysis. Patient has a history of acute systolic heart failure with an estimated EF of 25%. Patient presented with hypoglycemia. According to meds patient was still taking metformin 500 mg p.o. daily. Patient was also recently prescribed Cipro 500 mg p.o. twice daily for UTI. Patient now is presenting with confusion and hypoglycemia. Plan is patient was instructed to stop metformin and Cipro. UA and urine culture is still pending. Patient had hemodialysis today. According to daughter patient's mentation is at is at baseline. Patient no longer wanted to be hospitalized. Daughter did pick take patient AGAINST MEDICAL ADVICE. Stating she will follow-up outpatient for UA and urine culture results. I did instruct them to follow-up with her PCP in 1 week. The patient decided they wanted to leave AMA. The patient was informed about the risk of leaving. And was informed about the risk that are involved if they left without any treatment which may include . The patient was okay with it and decided to leave without any intervention. The patient was told to return for any worsening symptoms. Condition at Discharge: Unstable Final Diagnosis/Problems List Metabolic encephalopathy Hypoglycemia Hyponatremia Hypertensive emergency Generalized weakness End-stage renal disease on hemodialysis Discharge Disposition: AMA Discharge Statement: "Patient was advised to return to the ER or call 911 if any headaches, dizziness, shortness of breath, chest pain, abdominal pain, bleeding, fevers, or worsening of medical condition. Patient was counseled about treatment plan, medications, possible side effects, patientverbalized understanding. All questions were answered to the best of my ability. This discharge took greater then 30 minutes in planning, reviewing documentation, counseling the patient, and discussing with other team members." ASSESSMENT ASSESSMENT Assessment JAYDEN DODGE NP Jun 16, 2024 19:22
[2024-06-17] VITALS (7 sets, daily range): BP systolic 119–167; BP diastolic 38–98; PULSE 59–62; RESP 17–19; TEMP 98–99; O2SAT 96–100
[2024-06-17 07:44] LABS: Basophils # (auto) 0.1 10 ^3/uL (0-0.2); Basophils % (auto) 0.9 % (0.0-2.0); Eosinophils # (auto) 0.4 10 ^3/uL (0-0.8); Eosinophils % (auto) 5.1 % (0.0-7.0); Hematocrit 30.4 % (36.0-46.0); Hemoglobin 10.1 g/dL (12.2-16.2); Lymphocytes # (auto) 1.4 10 ^3/uL (0.4-5.4); Lymphocytes % (auto) 16.2 % (10.0-50.0); Mean Corpuscular Hemoglobin 29.6 pg (28.0-32.0); Mean Corpuscular Hgb Conc. 33.1 g/dL (32.0-36.0); Mean Corpuscular Volume 89.4 fL (80.0-100.0); Monocytes # (auto) 0.8 10 ^3/uL (0-1.3); Monocytes % (auto) 9.5 % (0.0-12.0); Neutrophils # (auto) 5.9 10 ^3/uL (1.6-8.6); Neutrophils % (auto) 68.3 % (37.0-80.0); Platelet Count (auto) 129 10^3/uL (140-450); White Blood Cell 8.6 10^3/uL (4.4-10.8)
[2024-06-17 08:10] LABS: Anion Gap 7 (5-15); Carbon Dioxide 28 mmol/L (20-31); Potassium 4.7 mmol/L (3.5-5.1)
[2024-06-17 08:11] LABS: Chloride 98 mmol/L (98-107); Sodium 133 mmol/L (136-145)
[2024-06-17 08:12] LABS: Calcium 9.2 mg/dL (8.7-10.4)
[2024-06-17 08:16] LABS: BUN/Creatinine Ratio 6.9 (10.0-20.0)
[2024-06-17 08:17] LABS: Blood Urea Nitrogen 39 mg/dL (9-23); Glucose 125 mg/dL (74-106)
[2024-06-17 08:21] LABS: Urine Bacteria FEW /hpf (None Seen); Urine Blood Negative /uL (Negative); Urine Clarity Clear (Clear); Urine Color Colorless (Yellow); Urine Protein, UAD 2+ (Negative); Urine Specific Gravity 1.004 (1.001-1.035); Urine Squamous Epithelial Cell FEW /hpf (<5); Urine Urobilinogen Normal (Negative); Urine WBC <1 /hpf (0 - 5); Urine pH 7.5 (5.0-9.0)
[2024-06-17] MEDS ORDERED: LOSA-534 PO (13:03)
[2024-06-17] MEDS ORDERED: NIFE1TAB31 PO (13:03)
[2024-06-17] MEDS ORDERED: HYDR50TA47 PO (13:03)
--- NOTE | 2024-06-17 14:21 | DVHPN2 ---
Progress Note Date Seen: Jun 17, 2024 Medical Necessity Reason Pt with a Central, PICC or Fol: No Subjective Review of Systems No new complaints. Last dialysis on 06/16 Patient reports: No new complaints Objective vital signs Vital Sign Date Time Temp Pulse Resp B/P (MAP) Pulse Ox O2 Delivery O2 Flow Rate FiO2 06/17/24 12:54 62 148/78 06/17/24 12:43 98.0 17 96 98.0 06/17/24 08:00 Nasal Cannula* 3 32 Total Intake and Output 06/16/24 06/16/24 06/17/24 15:00 23:00 07:00 Intake Total 1050 ml 150 ml Balance 1050 ml 150 ml medications Current Medications Medications Dose Ordered Sig/Trent Route Start Time Stop Time Status Last Admin Dose Admin Multivit/Ca Carb/ B Cmplx/FA/Prenat 1 tab DAILY PO 06/15/24 10:00 06/17/24 08:12 1 TAB Sevelamer HCl 800 mg TIDWM PO 06/14/24 18:00 06/17/24 11:26 800 MG Clonidine HCl 0.1 mg Q4HP PRN PO 06/14/24 17:30 06/14/24 18:57 0.1 MG Atorvastatin Calcium 10 mg HS PO 06/14/24 22:00 06/16/24 22:24 10 MG Carvedilol 6.25 mg Q12HR PO 06/14/24 22:00 06/17/24 11:54 6.25 MG Apixaban 2.5 mg BID PO 06/14/24 22:00 06/17/24 08:12 2.5 MG Diagnostic Test (Pha) 1 strip ACHS 06/14/24 22:00 06/17/24 11:26 1 STRIP Insulin Human Regular ACHS SC 06/14/24 22:00 Dextrose 50 ml UD PRN IV 06/14/24 17:30 06/15/24 05:26 50 ML Sodium Chloride 10 ml Q8HR IV 06/14/24 22:00 06/17/24 11:27 10 ML Acetaminophen/ Hydrocodone Bitart 1 tab Q4HP PRN PO 06/14/24 17:30 Ondansetron HCl 4 mg Q4HP PRN IV 06/14/24 17:30 Docusate Sodium 100 mg BIDPRN PRN PO 06/14/24 17:30 Acetaminophen 650 mg Q6HP PRN PO 06/14/24 17:30 Nitroglycerin 0.4 mg Q5MINP PRN SL 06/14/24 17:45 Morphine Sulfate 2 mg Q30M PRN IV 06/14/24 17:45 Hydralazine HCl 50 mg Q12HR PO 06/15/24 22:00 06/17/24 11:54 50 MG Losartan Potassium 50 mg BID PO 06/15/24 22:00 06/17/24 11:55 50 MG Amiodarone HCl 200 mg DAILY PO 06/15/24 12:30 06/17/24 08:12 200 MG Examination Gen: Appears stated age. In no acute distress. Pulm: Bilateral air entry. No rales. CV:RRR Ext: No edema laboratory and microbiology Laboratory Tests 06/17/24 07:00 Test 06/17/24 07:00 Range/Units Serum Glucose 125 H 74-106 mg/dL Microbiology Date/Time Source Procedure Growth Status 06/14/24 15:08 Blood Blood Culture - Preliminary NO GROWTH AFTER 48 HOURS OF INCUBATION. Resulted Labs and/or images reviewed: Labs reviewed by me Problem List/Assessment/Plan Problem List/Assessment/Plan IMP End-stage renal disease on hemodialysis Congestive heart failure, ejection fraction 25% Diabetes mellitus type 2 Status post hypoglycemia Hypertension Dementia AFib Anemia of chronic kidney disease, well compensated REC Pt to follow up outpt hemodialysis as per scheduled chair time, last HD 06/16. Pending D/C today Follow Renal diet at home Fluid restriction Plan discussed with: Patient LENZ,MATHIEU FNP Jun 17, 2024 14:21
--- NOTE | 2024-06-17 21:37 | DVHDS2 ---
Discharge Summary Date of Admission Jun 14, 2024 at 17:31 Date of Discharge: Jun 17, 2024 Labs/Diagnostic Data: Laboratory Results Test 06/17/24 10:37 06/17/24 07:34 06/17/24 07:00 06/15/24 05:55 POC Glucose 135 mg/dl (70-106) Urine Color Colorless (Yellow) Urine Clarity Clear (Clear) Urine pH 7.5 (5.0-9.0) Urine Specific [place] 1.004 (1.001-1.035) Urine Protein 2+ (Negative) Urine Ketones Negative (Negative) Urine Blood Negative /uL (Negative) Urine Nitrite Negative (Negative) Urine Bilirubin Negative (Negative) Urine Urobilinogen Normal mg/dL (Negative) Urine Leukocyte Esterase Negative /uL (Negative) Urine RBC <1 /hpf (0 - 4) Urine WBC <1 /hpf (0 - 5) Urine Squamous Epithelial Cells Few /hpf (<5) Urine Bacteria Few /hpf (None Seen) Urine Glucose 2+ mg/dL (Normal) White Blood Count 8.6 10^3/uL (4.4-10.8) Red Blood Count 3.40 10^6/uL (4.0-5.20) Hemoglobin 10.1 g/dL (12.2-16.2) Hematocrit 30.4 % (36.0-46.0) Mean Corpuscular Volume 89.4 fL (80.0-100.0) Mean Corpuscular Hemoglobin 29.6 pg (28.0-32.0) Mean Corpuscular Hemoglobin Concent 33.1 g/dL (32.0-36.0) Red Cell Distribution Width 19.0 % (11.8-14.3) Platelet Count 129 10^3/uL (140-450) Mean Platelet Volume 8.2 fL (6.9-10.8) Neutrophils (%) (Auto) 68.3 % (37.0-80.0) Lymphocytes (%) (Auto) 16.2 % (10.0-50.0) Monocytes (%) (Auto) 9.5 % (0.0-12.0) Eosinophils (%) (Auto) 5.1 % (0.0-7.0) Basophils (%) (Auto) 0.9 % (0.0-2.0) Neutrophils # (Auto) 5.9 10 ^3/uL (1.6-8.6) Lymphocytes # (Auto) 1.4 10 ^3/uL (0.4-5.4) Monocytes # (Auto) 0.8 10 ^3/uL (0-1.3) Eosinophils # (Auto) 0.4 10 ^3/uL (0-0.8) Basophils # (Auto) 0.1 10 ^3/uL (0-0.2) Nucleated Red Blood Cells 0.0 % Sodium Level 133 mmol/L (136-145) Potassium Level 4.7 mmol/L (3.5-5.1) Chloride Level 98 mmol/L (98-107) Carbon Dioxide Level 28 mmol/L (20-31) Anion Gap 7 (5-15) Blood Urea Nitrogen 39 mg/dL (9-23) Creatinine 5.67 mg/dL (0.550-1.02) Glomerular Filtration Rate Calc 7 mL/min (>90) BUN/Creatinine Ratio 6.9 (10.0-20.0) Serum Glucose 125 mg/dL (74-106) Calcium Level 9.2 mg/dL (8.7-10.4) Phosphorus Level 4.7 mg/dL (2.4-5.1) Magnesium Level 2.6 mg/dL (1.6-2.6) Total Bilirubin 0.2 mg/dL (0.2-1.0) Aspartate Amino Transferase (AST) 23 U/L (13-40) Alanine Aminotransferase (ALT) 19 U/L (7-40) Alkaline Phosphatase 97 U/L (46-116) Total Protein 6.8 g/dL (5.7-8.2) Albumin 3.9 g/dL (3.2-4.8) Parathyroid Hormone (Intact) 205.5 pg/mL (18.4-80.1) Hepatitis B Surface Antigen Negative (Negative) Test 06/14/24 14:29 Lactic Acid Level 1.2 mmol/L (0.4-2.0) Other Laboratory Tests 06/17/24 07:00 Brief Hx & Hospital Course: The patient is a 84-year-old female with past medical history of AFib, dementia, end-stage renal disease on hemodialysis, hypertension, and DM who presented to [facility] ED for evaluation of altered level of consciousness. Patient reports she was feeling generalized weakness after completing series of hemodialysis sessions for excessive fluids. When EMS arrived on the scene, patient's blood glucose was 41 mg/dL and was given D10 which improves blood glucose to the 230s. Patient also reports on being diagnosed with a UTI following recent hospital visit at [facility] and was placed on antibiotic regimen. Patient was seen and evaluated in the ED, laboratory data shows WBC 10.7, platelets 148, sodium 133, potassium 3.6, BUN 25, creatinine 4.33, GFR 10, glucose 99, blood pressure 228/78 trending down to 142/49, heart rate 60, temperature 99.2 F, O2 saturation 99% on oxygen. Chest x-ray revealing mild cardiomegaly with mild pulmonary vascular congestion and bibasilar atelectasis; underlying trace left-sided pleural effusion can not be excluded; right IJ approach hemodialysis catheter terminating within the proximal right atrium. Patient was given IV hydralazine, please see medication orders section in the computer. On my assessment, patient denies chest pain, no headache, no dizziness, no diaphoresis, no shortness of breaths, no nausea, no vomiting, no fever, no chills. Patient was admitted for further evaluation and medical management. Patient was admitted for metabolic encephalopathy. Patient is end-stage renal disease on hemodialysis. Patient had a daughter that took over her care and apparently there is some confusion about her home medications. Patient was restarted on metformin which is contraindicated with hemodialysis. Patient developed severe hypoglycemia and confusion. Patient's mentation is now at her baseline. Patient's glucose levels have now normalized. Patient was found to have a small amount of bacteria in her urine. Patient was also given a prescription for Cipro 500 p.o. twice daily. I told family to stop antibiotics at this time. Will await urine culture report. Patient to follow-up with her PCP in 1 week. The patient received proper medical treatment and medications. Vital signs, Imaging and Laboratory Work was monitored daily. All consults recommendations were followed as provided. There were no complaints or new complaints upon discharge, all questions and concerns were answered. Patient was advised to return to the ER or call 911 if any headaches, dizziness, shortness of breath, chest pain, bleeding, fevers, or worsening of medical condition. Patient/Family was counseled about treatment plan, medications, possible side effects, patient verbalized understanding. All questions were answered to the best of my ability. The patient symptoms improved and they are okay to be DC. Condition at Discharge: Stable Final Diagnosis/Problems List Metabolic encephalopathy Dementia Hypertensive urgency ESRD on HD DM II with hypoglycemia Hyponatremia Chronic anticoagulation Hx A-fib Discharge Disposition: Home Discharge Instruct/Medications Diet: Renal Activity: No Restrictions, As Tolerated Discharge Statement: "Patient was advised to return to the ER or call 911 if any headaches, dizziness, shortness of breath, chest pain, abdominal pain, bleeding, fevers, or worsening of medical condition. Patient was counseled about treatment plan, medications, possible side effects, patientverbalized understanding. All questions were answered to the best of my ability. This discharge took greater then 30 minutes in planning, reviewing documentation, counseling the patient, and discussing with other team members." ASSESSMENT ASSESSMENT Hospital Course The patient is a 84-year-old female with past medical history of AFib, dementia, end-stage renal disease on hemodialysis, hypertension, and DM who presented to [facility] ED for evaluation of altered level of consciousness. Patient reports she was feeling generalized weakness after completing series of hemodialysis sessions for excessive fluids. When EMS arrived on the scene, patient's blood glucose was 41 mg/dL and was given D10 which improves blood glucose to the 230s. Patient also reports on being diagnosed with a UTI following recent hospital visit at [facility] and was placed on antibiotic regimen. Patient was seen and evaluated in the ED, laboratory data shows WBC 10.7, platelets 148, sodium 133, potassium 3.6, BUN 25, creatinine 4.33, GFR 10, glucose 99, blood pressure 228/78 trending down to 142/49, heart rate 60, temperature 99.2 F, O2 saturation 99% on oxygen. Chest x-ray revealing mild cardiomegaly with mild pulmonary vascular congestion and bibasilar atelectasis; underlying trace left-sided pleural effusion can not be excluded; right IJ approach hemodialysis catheter terminating within the proximal right atrium. Patient was given IV hydralazine, please see medication orders section in the computer. On my assessment, patient denies chest pain, no headache, no dizziness, no diaphoresis, no shortness of breaths, no nausea, no vomiting, no fever, no chills. Patient was admitted for further evaluation and medical management. Patient was admitted on June 14, 2024 for acute metabolic encephalopathy. Daughter states she has recently taken over her mother's care. I did review home medications with daughter. Patient has underlying dementia and end-stage renal disease on hemodialysis. Patient has a history of acute systolic heart failure with an estimated EF of 25%. Patient presented with hypoglycemia. According to meds patient was still taking metformin 500 mg p.o. daily. Patient was also recently prescribed Cipro 500 mg p.o. twice daily for UTI. Patient now is presenting with confusion and hypoglycemia. Plan is patient was instructed to stop metformin and Cipro. UA and urine culture is still pending. Patient had hemodialysis today. According to daughter patient's mentation is at is at baseline. Patient no longer wanted to be hospitalized. Daughter did pick take patient AGAINST MEDICAL ADVICE. Stating she will follow-up outpatient for UA and urine culture results. I did instruct them to follow-up with her PCP in 1 week. The patient decided they wanted to leave AMA. The patient was informed about the risk of leaving. And was informed about the risk that are involved if they left without any treatment which may include . The patient was okay with it and decided to leave without any intervention. The patient was told to return for any worsening symptoms. Assessment Metabolic encelopathy, hypoglycemia, hyponatremia, weakeness, ESRD. JAYDEN DODGE NP Jun 17, 2024 21:37
== END 2024-06-17 17:18 | disposition home or self-care (01) | DRG 637 ==
LOC: ER 14:16 → EDBD 14:16 → TELE 17:31 → TELE-WESTW 22:45
PROVIDERS: ADMIT Nurse Practitioner Family; ATTEND Nurse Practitioner
PROC: 5A1D70Z Performance of Urinary Filtration, Intermittent, Less than 6 Hours Per Day (ICD-10-PCS; principal; 2024-06-15)
PROC: 5A1D70Z Performance of Urinary Filtration, Intermittent, Less than 6 Hours Per Day (ICD-10-PCS; 2024-06-16)
DX: E11.649 Type 2 diabetes mellitus with hypoglycemia without coma (principal); G93.41 Metabolic encephalopathy; I13.2 Hypertensive heart and chronic kidney disease with heart failure and with stage 5 chronic kidney disease, or end stage renal disease; E87.1 Hypo-osmolality and hyponatremia; I16.1 Hypertensive emergency; I50.22 Chronic systolic (congestive) heart failure; N18.6 End stage renal disease; D63.1 Anemia in chronic kidney disease; E11.22 Type 2 diabetes mellitus with diabetic chronic kidney disease; F03.90 Unspecified dementia, unspecified severity, without behavioral disturbance, psychotic disturbance, mood disturbance, and anxiety; I48.91 Unspecified atrial fibrillation; Z99.2 Dependence on renal dialysis; Z90.49 Acquired absence of other specified parts of digestive tract; Z90.710 Acquired absence of both cervix and uterus; Z79.84 Long term (current) use of oral hypoglycemic drugs; Z79.01 Long term (current) use of anticoagulants; Z79.4 Long term (current) use of insulin
CPT/HCPCS: 36415; 71045; 80048; 80053; 81001; 82962; 83605; 83735; 83970; 84100; 85025; 87040; 87086; 87340; 90935; 99291; G0378; J2405